=== PATIENT | female | born 1945 | race Caucasian/White ===

== ENCOUNTER 2019-10-28 01:23 | Day surgery (SDC) | payer MEDICARE, SELFPAY ==
[2019-10-27 08:35] VITALS: BMI 21.9
[2019-10-28] MEDS: LACTATED RINGERS 1,000 ML 150 ML IV CONT (09:42)
[2019-10-28 09:46] VITALS: BP 155/73; PULSE 57; RESP 18; TEMP 36.6; O2SAT 99; BMI 22.5
--- NOTE | 2019-10-28 10:48 | P.HP_ITS ---
History of Present Illness History of Present Illness Consent: Risks, benefits, and alternatives have been discussed and questions answered. Patient agrees to proceed with procedure. Chief complaint: Reflux/ Epigastric Pain Narrative: Michelle Aly is a 73 year old W female with chronic intermittent epigastric abdominal pain. Recent episodes of present for 4 months. She has no precipitating or relieving factors. Pain is epigastric in origin with radiation to the back. No nausea vomiting hematemesis no dysphagia no odynophagia. Patient states that she has had a recent CT scan of the abdomen which was normal. No weight loss associated with this. 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 GERD (gastroesophageal reflux disease) Hepatitis Hyperlipidemia Jaundice due to hepatitis Rectal polyp Rib fracture Seasonal allergies Sliding hiatal hernia Viral meningitis Surgical History Surgical History H/O colonoscopy History of bunionectomy of both great toes History of surgical removal of skin lesion removing fatty tumor on lower back History of tubal ligation Hx of appendectomy Hx of cataract removal with insertion of prosthetic lens Hx of cholecystectomy Hx of endoscopy Hx of tonsillectomy Social History Social History Smoking status: Never smoker Gender identity (if verbalized by the patient): Female Meds Home Medications and Allergies Home Medications Medication Instructions Recorded Confirmed Type aspirin [Aspir-81] 81 mg PO DAILY 10/09/19 10/27/19 History cholecalciferol (vitamin D3) 2,000 unit PO DAILY 10/09/19 10/27/19 History omeprazole 40 mg PO DAILY 10/09/19 10/27/19 History simvastatin 20 mg PO DAILY 10/09/19 10/27/19 History albuterol sulfate 1 inh INHALATION QID PRN 10/27/19 10/27/19 History Allergies Allergy/AdvReac Type Severity Reaction Status Date / Time erythromycin base Allergy Mild NAUSEA Verified 10/28/19 09:44 morphine Allergy Mild RAPID Verified 10/28/19 09:44 HEART RATE Vital Signs Vital Signs - 24 hr 10/28/19 09:46 Temperature 36.6 C Pulse Rate 57 L Respiratory Rate 18 Blood Pressure 155/73 H Pulse Oximetry 99 Exam Const: Orientation/consciousness: patient oriented x3 Resp: Auscultation: clear to auscultation bilaterally Cardio: Rate: regular rate Rhythm: regular rhythm Heart sounds: no murmurs GI: GI Palp: Yes Soft to palpation, No Tenderness to palpation present (GI), Yes No hepatosplenomegaly present and No Palpable mass present Auscultation: normal bowel sounds Neuro: General: patient oriented x3 and no focal motor deficits Extrem: General: no pedal edema Assessment and Plan Additional Plan EGD for evaluation of epigastric abdominal pain
[2019-10-28 11:12] VITALS: BP 109/56; PULSE 63; RESP 16; O2SAT 97
[2019-10-28 11:22] VITALS: BP 114/64; PULSE 63; RESP 16; O2SAT 97
[2019-10-28 11:32] VITALS: BP 120/69; PULSE 59; RESP 17; O2SAT 100
== END 2019-10-28 11:46 | disposition home or self-care (01) ==
PROVIDERS: PCP Physician Assistant; Visit Provider Internal Medicine Gastroenterology
PROC: 0DJ08ZZ Inspection of Upper Intestinal Tract, Via Natural or Artificial Opening Endoscopic (ICD-10-PCS; CPT 43235; principal; 2019-10-28 10:30)
DX: R10.13 Epigastric pain (principal); K44.9 Diaphragmatic hernia without obstruction or gangrene; J45.909 Unspecified asthma, uncomplicated; K21.9 Gastro-esophageal reflux disease without esophagitis; E78.5 Hyperlipidemia, unspecified; K75.9 Inflammatory liver disease, unspecified; H26.9 Unspecified cataract; Z79.82 Long term (current) use of aspirin
CPT/HCPCS: 43239; 88305; J2001; J2704; J7120

== ENCOUNTER → 2020-05-05 10:46 | Outpatient (CLI) | payer MEDICARE, SELFPAY ==
--- NOTE | ~2020-05-05 | MM_ITS ---
EXAMINATION: MM screening daniel BI w joe HISTORY: Screening TECHNIQUE: Craniocaudal and mediolateral oblique 3-D tomosynthesis images were obtained and synthetic 2-D images were generated. CAD analysis was submitted and interpreted. COMPARISON: Comparison to multiple prior studies sequentially, with oldest reviewed study dated 04/2014. BREAST PARENCHYMAL COMPOSITION: There are scattered areas of fibroglandular density. FINDINGS: There is no evidence of suspicious mass, calcification, or architectural distortion to sugg est malignancy in either breast. There has been no suspicious interval change. IMPRESSION: 1. No mammographic evidence of malignancy. 2. Recommend routine screening mammography in one year. BI-RADS Category 1: Negative Reviewed, dictated and finalized at location A.
== END ==
PROVIDERS: Visit Provider Physician Assistant
DX: Z12.31 Encounter for screening mammogram for malignant neoplasm of breast (principal)
CPT/HCPCS: 77063; 77067

== ENCOUNTER 2020-06-07 15:08 | Outpatient (CLI) | payer MEDICARE, SELFPAY ==
--- NOTE | 2020-06-07 | ECG_ITS ---
Measurements Intervals [place] Rate: 60 P: 67 ID: 140 QRS: 26 QRSD: 90 T: 54 QT: 425 QTc: 425 Interpretive Statements SINUS RHYTHM NORMAL ECG Electronically Signed On 06-07-2020 16:43:59 CDT by Miah Dunne D.O.
[2020-06-07 16:21] LABS: Hematocrit 43.1 % (37.0-47.0)
[2020-06-07 16:36] LABS: Albumin Level 4.5 g/dL (3.5-5.1); Estimated Glomerular Filt Rate > 60; Glucose 94 mg/dL (65-105)
== END 2020-06-07 15:09 | disposition home or self-care (01) ==
PROVIDERS: PCP Physician Assistant; Visit Provider Orthopaedic Surgery
DX: M16.11 Unilateral primary osteoarthritis, right hip (principal); K21.9 Gastro-esophageal reflux disease without esophagitis; E78.5 Hyperlipidemia, unspecified; Z01.818 Encounter for other preprocedural examination
CPT/HCPCS: 36415; 82040; 82565; 82947; 85014; 85018; 93005

== ENCOUNTER 2020-06-20 07:55 | Outpatient (CLI) | payer MEDICARE, SELFPAY ==
[2020-06-20 09:39] LABS: Basophils Absolute Auto 0.1 K/mm3 (0.0-0.1); Basophils Percent Auto 1.3 % (0.2-1.2); Eosinophils Absolute Auto 0.2 K/mm3 (0-0.3); Eosinophils Percent Auto 2.8 % (0-4.4); Hematocrit 45.8 % (37.0-47.0); Hemoglobin 14.9 g/dL (12.0-15.0); Immature Granulocyte Absolute 0.01 K/mm3 (0.00-0.031); Immature Granulocyte Percent A 0.2 % (0-0.5); Lymphocytes Absolute Auto 1.87 K/mm3 (0.9-3.2); Lymphocytes Percent Auto 35.1 % (18.3-44.2); Mean Corpuscular HGB Conc 32.5 g/dl (32-36); Mean Corpuscular Hemoglobin 29.5 pg (26-34); Mean Corpuscular Volume 90.7 fl (80-100); Mean Platelet Volume 10.8 fl (7.4-10.4); Monocytes Absolute Auto 0.5 K/mm3 (0.1-0.6); Monocytes Percent Auto 9.8 % (2.6-8.5); Neutrophils Absolute Auto 2.7 K/mm3 (1.3-6.7); Neutrophils Percent Auto 50.8 % (45.5-73.1); Platelet Count Result 225 k/mm3 (150-375); Red Blood Count 5.05 M/mm3 (4.2-5.4); Red Cell Distribution Width 12.9 % (11.5-14.5); White Blood Count 5.3 K/mm3 (4.5-10.0)
[2020-06-20 09:48] LABS: Prothrombin Time 12.4 Seconds (11.1-14.7)
[2020-06-20 09:49] LABS: Partial Thromboplastin Time 29.5 SECONDS (22.3-36.8); Urine Cotinine NEGATIVE
[2020-06-20 09:50] LABS: Anion Gap 5 mmol/L (8-16); Blood Urea Nitrogen 17 mg/dL (7-17); Calcium 9.5 mg/dL (8.4-10.2); Carbon Dioxide 30 mmol/L (22-30); Chloride 103 mmol/L (98-107); Estimated Glomerular Filt Rate > 60; Glucose 100 mg/dL (65-105); Potassium 3.9 mmol/L (3.4-5.0); Sodium 138 mmol/L (137-145)
[2020-06-20 09:53] LABS: Hemoglobin A1C 5.5 % (<5.7)
== END 2020-06-20 07:56 | disposition home or self-care (01) ==
LOC: ANHSURGERY 07:59
PROVIDERS: Anesthesiology; PCP Physician Assistant; Visit Provider Orthopaedic Surgery
DX: Z01.818 Encounter for other preprocedural examination (principal); M16.11 Unilateral primary osteoarthritis, right hip; K75.9 Inflammatory liver disease, unspecified
CPT/HCPCS: 36415; 80048; 80307; 83036; 85025; 85610; 85730; 87081

== ENCOUNTER 2020-07-08 01:44 | Outpatient (CLI) | payer MEDICARE, SELFPAY ==
[2020-07-08 18:59] LABS: SARS-CoV-2 RNA PCR Negative
== END 2020-07-08 01:45 | disposition home or self-care (01) ==
LOC: ANHCOVIDDT 01:45
PROVIDERS: PCP Physician Assistant; Visit Provider Orthopaedic Surgery
DX: Z01.812 Encounter for preprocedural laboratory examination (principal); Z20.828 Contact with and (suspected) exposure to other viral communicable diseases
CPT/HCPCS: 87635; C9803; U0003

== ENCOUNTER 2020-07-11 01:20 | Day surgery (SDC) | payer MEDICARE, SELFPAY ==
[2020-06-20 08:19] VITALS: BMI 23.1
[2020-06-20 08:20] VITALS: BP 186/85; PULSE 58; RESP 16; TEMP 36.7; O2SAT 98
[2020-07-11] VITALS (11 sets, daily range): BP systolic 120–177; BP diastolic 59–76; PULSE 56–61; RESP 8–20; TEMP 36–36.6; O2SAT 96–100; BMI 22.9
--- NOTE | ~2020-07-11 | XR_ITS ---
EXAMINATION: XR hip RT min 2V DATE: 07/11/2020 15:32 INDICATION: EXAMINATION: XR hip RT min 2V DATE: 07/11/2020 15:32 INDICATION: Postoperative evaluation following right total hip arthroplasty TECHNIQUE: Anteroposterior and lateral views of the right hip were obtained. COMPARISON: Intraoperative radiograph dated FINDINGS: Interval placement of a right total hip arthroplasty which is in near anatomic alignment. There is re sidual lucency between the acetabulum and the superior to medial aspect of the acetabular component. No fractures identified. Partially visualized femoral stem of a contralateral left total hip arthrop lasty. IMPRESSION: 1. Right total hip arthroplasty in near-anatomic alignment. Reviewed, dictated and finalized at location B.
--- NOTE | 2020-07-11 07:20 | WPDHPUPDATE1 ---
History and Physical Update Update Date/Time: 07/11/20 07:20 History and Physical has been reviewed, including an updated exam of the patient. There are NO changes in the patient's condition. Risks, benefits, and alternatives have been discussed and questions answered. Patient agrees to proceed with procedure.
[2020-07-11] MEDS: ACETAMINOPHEN 500 MG TABLET 1000 MG PO (10:59)
--- NOTE | 2020-07-11 11:06 | WPDANESEPPF ---
Anes - Initial Pre Proc Eval Procedure: Operation Date: 07/11/20 12:30 Proposed Procedures p Right Total Hip Arthroplasty - Reinier Morrissey MD Date/Time: 07/11/20 11:06 Surgeon: Reinier Morrissey MD Pre Op Diagnosis: Primary OA Right hip Patient Data Age: 74 Gender: F Height: 5 ft 3 in Weight: 58.85 kg Last Vital Signs Temp 36.6 C 07/11/20 10:45 Pulse 56 L 07/11/20 10:45 Resp 14 07/11/20 10:45 BP 177/74 H 07/11/20 10:45 Pulse Ox 100 07/11/20 10:45 Allergies Allergy/AdvReac Type Severity Reaction Status Date / Time erythromycin base Allergy Mild NAUSEA Verified 07/11/20 10:51 morphine AdvReac Mild RAPID Verified 07/11/20 10:51 HEART RATE Home Medications Medication Instructions Recorded Confirmed Type aspirin [Aspir-81] 81 mg PO HS 10/09/19 07/11/20 History omeprazole 40 mg PO QAM 10/09/19 07/11/20 History simvastatin 20 mg PO HS 10/09/19 07/11/20 History albuterol sulfate 1 inh INHALATION QAM PRN 10/27/19 07/05/20 History acetaminophen [Tylenol Extra 1,000 mg PO Q6H PRN 06/20/20 07/11/20 History Strength] cholecalciferol (vitamin D3) 25 mcg PO DAILY 06/20/20 07/11/20 History [Vitamin D3] fluticasone propion-salmeterol 1 inh INHALATION QAM 06/20/20 07/11/20 History [Advair Diskus] Patient hx anesthesia problems: none Family hx anesthesia problems: none PMFSH Past Medical History Medical History Asthma Bronchitis Cataracts, bilateral Falls Fatty tumor on lower back GERD (gastroesophageal reflux disease) Hepatitis Hyperlipidemia Jaundice due to hepatitis Rectal polyp Rib fracture Seasonal allergies Sliding hiatal hernia Viral meningitis Surgical History Surgical History H/O colonoscopy History of bunionectomy of both great toes History of surgical removal of skin lesion removing fatty tumor on lower back History of total left hip arthroplasty History of tubal ligation Hx of appendectomy Hx of cataract removal with insertion of prosthetic lens Hx of cholecystectomy Hx of endoscopy Hx of tonsillectomy Social History Social History Smoking status: Never smoker Alcohol intake: never Substance use: never Living arrangements: with family Gender identity (if verbalized by the patient): Female Spiritual care concerns: No Anes - Eval Final PreProcedure Day of Procedure 07/11/20 11:06 Patient weight: normal Heart: regular rate and rhythm Lungs: clear to auscultation Airway: Mallampati scale class II Neurological: alert and oriented Last oral intake: >/= 8 hours ASA classification: II Emergent: no Anesthetic plan: proceed Anesthesia type and monitoring: general ETT and standard monitoring Informed Consent: The patient's anesthetic plan and its attendant risks and benefits were discussed with the patient/family/POA. Questions were solicited and answers provided to the satisfaction of the patient/family/POA.
[2020-07-11] MEDS: LACTATED RINGERS 1,000 ML 30 ML IV CONT ×2 (11:12→15:15)
[2020-07-11] MEDS: KETOROLAC 15 MG/ML VIAL (*BKC) IV PUSH (11:18)
[2020-07-11] MEDS: TRANEXAMIC ACID 1,000MG/ISO100 1,000 MG/100 ML BAG 200 MG IVPB (11:43)
[2020-07-11] MEDS: ceFAZolin 2 GM/D5W 50 ML 2 GM/50 ML BAG IVPB (13:24)
[2020-07-11] MEDS: fentaNYL CITRATE INJ (*CRX) 100 MCG/2 ML VIAL 25 MCG IV PUSH ×2 (15:52→16:00)
--- NOTE | 2020-07-11 15:52 | P.OP_ITS ---
Procedure Note - Detailed Date of procedure: 07/11/20 Pre-op diagnosis: Primary OA Right hip Post-op diagnosis: same Procedure performed: Total hip arthroplasty. Implants: The Accolade II hip stem, 127 degree size 3 , was utilized with excell ent press-fit. The 48 mm ADM acetabular component was impacted with excellent press-fit stability. The +4 , 28 mm Biolox ceramic femoral head was utilized. Anesthesia: GLMA Surgeon: Reinier Morrissey MD Estimated blood loss (mL): 200 Drains: No Pathology: none sent Complications: None Condition: stable Disposition: PACU Findings: OPERATIVE DETAILS: The patient was given preoperative antibiotics. A general anesthetic was administered. The patient was carefully placed in the lateral decubitus position on the PEG board. The shoulders and hips were carefully positioned for component and leg length positioning reference. The hip was prepped and draped in the usual sterile fashion. A longitudinal incision was created over the posterior aspect of the greater trochanter. Careful dissection was brought down through the deep fascia with electrocautery. A minimally invasive optimized posterior approach to the hip was performed. The short external rotators and capsule were taken down in an L-shaped capsulotomy. The tissue was tagged for later repair using number 2 high strength suture. The femoral neck was measured and taken in situ. The femoral head was removed. The acetabulum was carefully exposed. The inferior capsule was released. The labrum was resected. The acetabulum was sequentially reamed to one over the intended cup size. The cup was impacted into position with excellent press-fit. Typical anatomic landmarks, including the bony contact points as well as the inferior transverse acetabular ligament were used to confirm cup positioning with preoperative templating. Attention was turned to the femur, which was carefully exposed. The hip was reamed and then broached sequentially. Excellent press-fit was obtained with the broach. The hip was trialed. Measurements were utilized, including the lesser trochanter as well as the center of the femoral head and the tip of the trochanter, and excellent assessment of the offset and leg lengths were confirmed. The real component was impacted into position. Trialing confirmed appropriate leg length and offset with soft tissue balancing as well apparent feel of the leg, both at the knee and the heel. Soft tissues were assessed using the the iliotibial band. Reduction of the posterior capsule and external rotators were also used as a secondary assessment. The hip was copiously irrigated with pulsatile lavage antibiotic solution periodically throughout the procedure. The real components were then assembled and reduced. The hip was stable throughout typical maneuvers, including extension, external rotation to 70 degrees, the position of sleep as well as flexion to 90 degrees with internal rotation past 45 degrees. The shake test confirmed stability without impingement. Osteophytes were removed as necessary. The short external rotators and capsule were repaired back to the posterior trochanter through drill holes. The deep fascia was repaired with running number 2 Quill suture, followed by 0 Stratafix suture and 2-0 Stratafix suture in the dermis. Steri- Strips were placed on the skin, followed by a sterile silver occlusive dressing. There were no complications. Meticulous hemostasis was maintained with the AquaMantys device. The patient was brought to the recovery room in stable condition. There were no complications.
--- NOTE | 2020-07-11 16:28 | ADMGEN ---
This patient, Michelle Aly, was admitted to 2 Medical Room 258-01. Patient/family oriented to hospital policies and general routines including ID bracelet, bed and alarms, visiting hours, pain management, procedures, bathroom and other care routines, personal items, smoking policy, room service/diet, and visiting hours. Valuables list has been completed. Information on how to activate the Rapid Response Team has been discussed. Patient/Family are encouraged to report perceived risks to care and to ask questions if they do not understand what they are told or what they should do.
[2020-07-11 16:36] LABS: Hematocrit 37.6 % (37.0-47.0); Hemoglobin 12.5 g/dL (12.0-15.0)
[2020-07-11] MEDS: ONDANSETRON INJ 4 MG/2 ML VIAL IV PUSH (16:37)
[2020-07-11] MEDS: MELOXICAM 7.5 MG TABLET PO (17:46)
[2020-07-11] MEDS: ASPIRIN 81 MG ENTERIC TABLET PO (17:46)
[2020-07-11] MEDS: DOCUSATE SODIUM 100 MG CAPSULE PO (17:46)
[2020-07-11] MEDS: SIMVASTATIN 20 MG TABLET PO (21:06)
[2020-07-11] MEDS: oxyCODONE HCL (*CRX) 5 MG TAB IR PO (21:06)
[2020-07-12 01:56] VITALS: BP 134/63; PULSE 65; RESP 20; TEMP 36.2; O2SAT 100
[2020-07-12] MEDS: ONDANSETRON INJ 4 MG/2 ML VIAL IV PUSH ×2 (02:06→08:12)
[2020-07-12 05:41] VITALS: BP 127/58; PULSE 59; RESP 20; TEMP 36.4; O2SAT 100
[2020-07-12 06:02] LABS: Basophils Percent Auto 0.1 % (0.2-1.2); Hematocrit 36.6 % (37.0-47.0); Hemoglobin 12.4 g/dL (12.0-15.0); Immature Granulocyte Absolute 0.07 K/mm3 (0.00-0.031); Immature Granulocyte Percent A 0.5 % (0-0.5); Lymphocytes Percent Auto 10.5 % (18.3-44.2); Mean Corpuscular HGB Conc 33.9 g/dl (32-36); Mean Corpuscular Hemoglobin 29.6 pg (26-34); Mean Corpuscular Volume 87.4 fl (80-100); Mean Platelet Volume 10.7 fl (7.4-10.4); Monocytes Absolute Auto 1.4 K/mm3 (0.1-0.6); Monocytes Percent Auto 9.6 % (2.6-8.5); Neutrophils Absolute Auto 11.4 K/mm3 (1.3-6.7); Neutrophils Percent Auto 79.3 % (45.5-73.1); Platelet Count Result 204 k/mm3 (150-375); Red Blood Count 4.19 M/mm3 (4.2-5.4); Red Cell Distribution Width 12.4 % (11.5-14.5); White Blood Count 14.3 K/mm3 (4.5-10.0)
[2020-07-12 06:04] LABS: Anion Gap 7 mmol/L (8-16); Blood Urea Nitrogen 13 mg/dL (7-17); Calcium 8.7 mg/dL (8.4-10.2); Carbon Dioxide 28 mmol/L (22-30); Chloride 100 mmol/L (98-107); Estimated CRCL calculation 52 ml/min; Estimated Glomerular Filt Rate > 60; Glucose 114 mg/dL (65-105); Potassium 4.3 mmol/L (3.4-5.0); Sodium 135 mmol/L (137-145)
--- NOTE | 2020-07-12 07:57 | P.PNAN_ITS ---
Anes - Prog Note Post-Op Date/Time: 07/12/20 07:57 Cardiovascular status: normal Respiratory status: normal Airway patency: baseline Mental status: baseline Post-Op hydration status: normal Vital Signs: Last Vital Signs Temp 36.4 C 07/12/20 05:41 Pulse 59 L 07/12/20 05:41 Resp 20 07/12/20 05:41 BP 127/58 L 07/12/20 05:41 Pulse Ox 100 07/12/20 05:41 Pain Score (VAS): 0 I/O: Intake & Output 07/11/20 07/11/20 07/12/20 15:59 23:59 07:59 Intake Total 50 550 640 Output Total 300 600 Balance 50 250 40 Laboratory Tests 07/12/20 05:23 07/12/20 05:23 07/11/20 07/11/20 07/12/20 11:09 16:29 05:23 WBC 14.3 H RBC 4.19 L Hgb 12.5 12.4 Hct 37.6 36.6 L MCV 87.4 MCH 29.6 MCHC 33.9 RDW 12.4 Plt Count 204 MPV 10.7 H Immature Gran % (Auto) 0.5 Neut % (Auto) 79.3 H Lymph % (Auto) 10.5 L [place] % (Auto) 9.6 H Eos % (Auto) 0.0 Baso % (Auto) 0.1 L Lymph # (Auto) 1.50 [place] # (Auto) 1.4 H Eos # (Auto) 0.0 Baso # (Auto) 0.0 Abs Immat Gran (auto) 0.07 H Absolute Neuts (auto) 11.4 H Absolute Nucleated RBC 0.0 Nucleated RBC % 0.0 Sodium Potassium Chloride Carbon Dioxide Anion Gap BUN Creatinine Estim Creat Clear Calc Estimated GFR Glucose Calcium Blood Type O Positive Antibody Screen Negative 07/12/20 05:23 WBC RBC Hgb Hct MCV MCH MCHC RDW Plt Count MPV Immature Gran % (Auto) Neut % (Auto) Lymph % (Auto) [place] % (Auto) Eos % (Auto) Baso % (Auto) Lymph # (Auto) [place] # (Auto) Eos # (Auto) Baso # (Auto) Abs Immat Gran (auto) Absolute Neuts (auto) Absolute Nucleated RBC Nucleated RBC % Sodium 135 L Potassium 4.3 Chloride 100 Carbon Dioxide 28 Anion Gap 7 L BUN 13 Creatinine 0.70 Estim Creat Clear Calc 52 Estimated GFR > 60 Glucose 114 H Calcium 8.7 Blood Type Antibody Screen Post-procedural complaints: nausea Patient Feedback: Patient satisfied with anesthetic care.
--- NOTE | 2020-07-12 07:58 | PC.NURSE ---
Patient up in chair. Complains of continued nausea. Patient unable to eat or drink anything. States Zofran has not provided any relief. Patient rates right hip pain 10/08. States she is comfortable other than the c/o nausea. Patient ordered dry toast but has been unable to eat any of it. Just smelling it has increased her nausea. OT here to work with patient but patient fears she will start vomiting if she moves/walks at this time. Call to Dr. Morrissey and message left. Awaiting call back.
[2020-07-12] MEDS: FLUTICASONE/SALMETEROL 115-21 MCG INHALER 1 PUFF 2 PUFF INHALATION (08:19)
[2020-07-12 10:00] VITALS: BP 108/52; PULSE 59; RESP 16; TEMP 36.6; O2SAT 98
[2020-07-12] MEDS: CHOLECALCIFEROL 1,000 UNITS TABLET 1000 UNITS PO (10:04)
[2020-07-12] MEDS: ASPIRIN 81 MG ENTERIC TABLET PO (10:04)
[2020-07-12] MEDS: MELOXICAM 7.5 MG TABLET PO (10:04)
[2020-07-12] MEDS: DOCUSATE SODIUM 100 MG CAPSULE PO (10:04)
[2020-07-12] MEDS: PANTOPRAZOLE 40 MG TABLET PO (10:04)
[2020-07-12] MEDS: PROMETHAZINE HCL 25 MG/ML AMPUL 12.5 MG IV PUSH (11:05)
[2020-07-12 14:00] VITALS: BP 100/51; PULSE 70; RESP 16; TEMP 37.1; O2SAT 100
--- NOTE | 2020-07-15 10:35 | PM.DS ---
DS: Admitting Diagnosis Admitting Diagnosis Admitting Diagnosis: Primary OA Right hip DS: Discharge Diagnosis Discharge Diagnosis (1) Primary osteoarthritis of right hip: Code(s): M16.11 - Unilateral primary osteoarthritis, right hip Status: Acute DS: Summary Hospital Course Reason for hospitalization: Total hip arthroplasty. Hospital Course: Tolerated surgery well. Progressed appropriately with therapy. Complained of significant nausea in the 1st 24 hours. Status at Discharge Functional status at discharge: uses cane/walker Overall status at discharge: patient is progressing back to baseline Time Spent with Patient Time attestation: Total time spent providing and/or coordinating discharge services: Exam Const: General: no acute distress Resp: Effort & Inspection: normal respiratory effort Skin: Other: Wound healing well. Mepilex dressing intact. No hematoma or drainage. Neuro: Motor exam (neuro): 5/5 motor strength present throughout Sensory Exam: normal sensation Psych: Mental Status: mental status grossly normal Speech and movement: Normal speech and movement present Discharge Plan Discharge Patient Disposition: Home, Self-Care Discharge Instructions: See instruction sheet. Patient Instructions: Precautions after Total Joint Replacement Surgery (DC), Total Hip Replacement (DC), Pain Management After Surgery (GEN) Follow-up/Referrals: Reinier Morrissey MD [Physician] - Discharge Medications: New aspirin 81 mg Tablet,Delayed Release (Dr/Ec) 81 mg PO BID 14 Days Qty: 28 RF: 0 meloxicam [Mobic] 7.5 mg Tablet 7.5 mg PO BID 30 Days Qty: 60 RF: 0 oxycodone-acetaminophen 5-325 mg tablet 1 - 2 tablet PO Q4-6H MDD 6 tablets PRN (Reason: pain) Qty: 30 RF: 0 Continued omeprazole 40 mg capsule,delayed release(DR/EC) 40 mg PO QAM RF: 0 simvastatin 20 mg tablet 20 mg PO HS RF: 0 albuterol sulfate 90 mcg/actuation Hfa Aerosol Inhaler 1 inh INHALATION QAM PRN (Reason: difficulty breathing) RF: 0 cholecalciferol (vitamin D3) [Vitamin D3] 25 mcg (1,000 unit) Capsule 25 mcg PO DAILY RF: 0 Advair HFA 115-21 mcg/actuation Hfa Aerosol Inhaler 2 puff INHALATION DAILY RF: 0 Discontinued aspirin [Aspir-81] 81 mg Tablet,Delayed Release (Dr/Ec) 81 mg PO HS RF: 0 acetaminophen [Tylenol Extra Strength] 500 mg Tablet 1,000 mg PO Q6H PRN (Reason: Pain) RF: 0
== END 2020-07-12 16:50 | disposition home or self-care (01) ==
LOC: ANHSURGERY 10:21 → ANH2MED 16:19
PROVIDERS: PCP Physician Assistant; Visit Provider Orthopaedic Surgery
PROC: (CPT 27130; principal; 2020-07-11 12:30)
DX: M16.11 Unilateral primary osteoarthritis, right hip (principal); K21.9 Gastro-esophageal reflux disease without esophagitis; K75.9 Inflammatory liver disease, unspecified; E78.5 Hyperlipidemia, unspecified
CPT/HCPCS: 27130; 36415; 73502; 80048; 85014; 85018; 85025; 86850; 86900; 86901; 94640; 97110; 97116; 97161; 97165; 97530; A9270; C1776; J0131; J0171; J0690; J1100; J1885; J2270; J2405; J2550; J2704; J2795; J3010; J7120

== ENCOUNTER → 2021-07-17 13:36 | Outpatient (CLI) | payer MEDICARE, SELFPAY ==
--- NOTE | ~2021-07-17 | MM_ITS ---
EXAMINATION: MM screening daniel BI w joe HISTORY: Screening mammogram TECHNIQUE: Craniocaudal and mediolateral oblique 3-D tomosynthesis images were obtained and synthetic 2-D images were generated. CAD analysis was submitted and interpreted. COMPARISON: 05/05/2020, 02/16/2019, 01/2018 bilateral digital screening mammogram examinations BREAST PARENCHYMAL COMPOSITION: There are scattered areas of fibroglandular density. FINDINGS: Scattered bilateral benign calcifications. There is no evidence of suspicious mass, calcifi cation, or architectural distortion to suggest malignancy in either breast. There has been no suspici ous interval change. IMPRESSION: 1. No mammographic evidence of malignancy. 2. Recommend routine screening mammography in one year. BI-RADS Category 2: Benign finding(s). Reviewed, dictated and finalized at location A.
== END ==
PROVIDERS: PCP Physician Assistant; Visit Provider Physician Assistant
DX: Z12.31 Encounter for screening mammogram for malignant neoplasm of breast (principal)
CPT/HCPCS: 77063; 77067

== ENCOUNTER → 2021-09-06 11:06 | Outpatient (CLI) | payer MEDICARE, SELFPAY ==
--- NOTE | ~2021-09-06 | DEXA_ITS ---
Bone Density Report Name: HYACINTH MCCOY Age: 75 Sex: Female Ethnicity: White Date of : 1945 Indication: postmenopausal; screening for osteoporosis; asthma or emphysema; Referring Provider: Nii, Linette Study: Bone densitometry was performed. Exam Date: September 06, 2021 Accession number: [id number] Bone Density: Region BMD T-score Z-score Classification AP Spine (L1-L4) 1.037 -0.1 2.2 Normal World Health Organization criteria for BMD impression classify patients as: Normal (T-score at or above -1.0), Osteopenia (T-score between -1.0 and -2.5), or Osteoporosis (T-score at or below -2.5). Previous Exams: Region Exam Age BMD T-score BMD Change BMD Change Date g/cm2 vs Baseline vs Previous AP Spine(L1-L4) 09/06/2021 75 1.037 -0.1 -0.054* 0.064* 11/02/2014 68 0.973 -0.7 -0.118* -0.118* 01/10/2010 64 1.091 0.4 *Denotes significance at 95% confidence level, LSC for AP Spine = 0.022 g/cm2 Clinical Information Provided by Patient: Has used the following medications: Vitamin D Has the following medical conditions: Asthma or Emphysema Patient maximum height was 63 Menopause Age: 55 Drinks caffeinated beverages Onset of menses at age 12 Number of children 3 Impression: The patient has normal bone mass. No significant bone loss was observed. Discussion: LOW RISK OF FRACTURE; BONE DENSITY IS WELL ABOVE THE MINIMUM DESIRABLE LEVEL AND ABOVE AVERAGE FOR AGE AND SEX AT ALL SKELETAL SITES TESTED. This person's bone density is above expected limits for age and sex. This is rarely clinically significant, but should be pursued if there are significant musculoskeletal complaints. The patient should follow a healthful lifestyle (good nutrition with adequate calcium and vitamin D, and appropriate weight-bearing exercise). Follow-Up: Consider repeating this study in 5 years or sooner if there is some new clinical indication. Reported by: KAPIL on 09/06/2021 11:14:00 AM. Reviewed, dictated and finalized at location ADelilah SAUCEDA
== END ==
PROVIDERS: PCP Physician Assistant; Visit Provider Physician Assistant
DX: Z78.0 Asymptomatic menopausal state (principal)
CPT/HCPCS: 77080

== ENCOUNTER 2021-10-03 07:52 | Outpatient (CLI) | payer MEDICARE, SELFPAY ==
[2021-10-03 08:18] LABS: Basophils Absolute Auto 0.1 K/mm3 (0.0-0.1); Basophils Percent Auto 0.9 % (0.2-1.2); Eosinophils Absolute Auto 0.2 K/mm3 (0-0.3); Eosinophils Percent Auto 3.4 % (0-4.4); Hematocrit 39.7 % (37.0-47.0); Hemoglobin 12.6 g/dL (12.0-15.0); Immature Granulocyte Absolute 0.02 K/mm3 (0.00-0.031); Immature Granulocyte Percent A 0.3 % (0-0.5); Lymphocytes Absolute Auto 2.17 K/mm3 (0.9-3.2); Lymphocytes Percent Auto 31.7 % (18.3-44.2); Mean Corpuscular HGB Conc 31.7 g/dl (32-36); Mean Corpuscular Volume 85.2 fl (80-100); Mean Platelet Volume 10.2 fl (7.4-10.4); Monocytes Absolute Auto 0.7 K/mm3 (0.1-0.6); Monocytes Percent Auto 9.5 % (2.6-8.5); Neutrophils Absolute Auto 3.7 K/mm3 (1.3-6.7); Neutrophils Percent Auto 54.2 % (45.5-73.1); Platelet Count Result 250 k/mm3 (150-375); Red Blood Count 4.66 M/mm3 (4.2-5.4); Red Cell Distribution Width 13.6 % (11.5-14.5); White Blood Count 6.9 K/mm3 (4.5-10.0)
[2021-10-03 08:42] LABS: Alanine Aminotransferase 18 U/L (4-35); Albumin Level 4.5 g/dL (3.5-5.1); Alkaline Phosphatase 80 U/L (38-126); Anion Gap 9 mmol/L (8-16); Aspartate Amino Transferase 31 U/L (14-36); Bilirubin,Total 0.5 mg/dL (0.2-1.3); Blood Urea Nitrogen 16 mg/dL (7-17); Calcium 9.3 mg/dL (8.4-10.2); Carbon Dioxide 28 mmol/L (22-30); Chloride 103 mmol/L (98-107); Cholesterol 203 mg/dL (0-200); Estimated Glomerular Filt Rate > 60; Glucose 96 mg/dL (65-110); HDL Direct 62 mg/dL; Potassium 4.2 mmol/L (3.4-5.0); Sodium 140 mmol/L (137-145); Triglycerides 146 mg/dL (<150)
[2021-10-03 08:53] LABS: LDL Cholesterol Direct 89 mg/dL
[2021-10-03 09:03] LABS: Add Urine Microscopic? YES; Appearance Urine Clear (Clear); Bacteria Urine Trace /hpf; Bilirubin Urine Negative (Negative); Blood Urine Negative (Negative); Color Urine Yellow (Yellow); Glucose Urine UA Negative (Negative); Ketones Urine Negative (Negative); Leukocyte Esterase Ur 2+ LEU/UL (NEGATIVE); Mucus Urine Rare /lpf; Nitrate Urine Negative (Negative); Protein Urine Negative (Negative); RBC Urine 0-2 /hpf (0-2); Specific Grav Ur 1.019 (1.001-1.035); Squamous Epithelial Cell Urine Few /hpf (Few); Urobilinogen Urine Negative mg/dL (<2.0)
[2021-10-03 10:31] LABS: Free T4 Free Thyroxine 1.03 ng/mL (0.78-2.19)
== END 2021-10-03 07:53 | disposition home or self-care (01) ==
PROVIDERS: PCP Physician Assistant; Visit Provider Physician Assistant
DX: E78.5 Hyperlipidemia, unspecified (principal); Z51.81 Encounter for therapeutic drug level monitoring; Z79.899 Other long term (current) drug therapy
CPT/HCPCS: 36415; 80048; 80061; 80076; 81001; 84439; 84443; 85025

== ENCOUNTER 2021-12-11 07:10 | Emergency (ER) | payer MEDICARE, SELFPAY ==
[2021-12-11] VITALS (14 sets, daily range): BP systolic 113–143; BP diastolic 70–86; PULSE 64–74; RESP 13–16; TEMP 36.5; O2SAT 95–99
--- NOTE | ~2021-12-11 | XR_ITS ---
EXAMINATION: XR chest 1V portable DATE: 12/11/2021 07:51 INDICATION: Flu with cough and shortness of breath TECHNIQUE: frontal view of the chest was obtained. COMPARISON: Chest radiograph dated 12/02/2013 FINDINGS: Persistent hyperexpansion of the lungs. Mild opacities at the bilateral lung bases, left greater than right. No pleural effusion or pneumothorax. The cardiomediastinal silhouette is normal. Visualized b ones and soft tissues are unremarkable. IMPRESSION: 1. Mild bibasilar opacities, left greater than right which could represent atelectasis or pneumonia. Reviewed, dictated and finalized at location A. IMPRESSION: 1. Mild bibasilar opacities, left greater than right which could represent atel ectasis or pneumonia.
--- NOTE | 2021-12-11 07:35 | PC.NURSE ---
Dr. José at [facility] to wang .
--- NOTE | 2021-12-11 07:54 | ED.GENADULT ---
HPI - General Adult General Chief complaint: Upper Respiratory Infection Stated complaint: Cold symptoms Time Seen by Provider: 12/11/21 07:32 Source: patient and family Mode of arrival: ambulatory History of Present Illness HPI narrative: Patient 75 years old white female presents to the ED with nausea, vomiting and diarrhea started 3 days ago. Patient grandson tested positive for the flu 5 days prior to beginning of the patient's symptoms. Patient is fully vaccinated for COVID-19. Patient denies exposure to anybody known to have Covid infection. Related Data Home Medications Medication Instructions Recorded Confirmed omeprazole 40 mg PO QAM 10/09/19 07/09/21 simvastatin 20 mg PO HS 10/09/19 07/09/21 albuterol sulfate 1 inh INHALATION QAM PRN 10/27/19 07/09/21 cholecalciferol (vitamin D3) 25 mcg PO DAILY 06/20/20 07/09/21 [Vitamin D3] Advair HFA 2 puff INHALATION DAILY 07/12/20 07/09/21 aspirin 81 mg PO DAILY 12/11/21 Allergies Allergy/AdvReac Type Severity Reaction Status Date / Time erythromycin base Allergy Mild NAUSEA Verified 07/09/21 08:18 azithromycin Allergy Unknown unknown Verified 07/09/21 08:18 morphine AdvReac Mild RAPID Verified 07/09/21 08:18 HEART RATE Review of Systems Review of Systems: CONSTITUTIONAL: Denies fever, chills, or sweats. EYES: Denies visual changes, redness, or discharge. ENT: Denies rhinorrhea, congestion, sore throat, or otalgia. CARDIOVASCULAR: Denies chest pain, palpitations, or edema. RESPIRATORY: Denies cough or dyspnea. GASTROINTESTINAL: Denies abdominal pain, nausea, vomiting, or diarrhea. GENITOURINARY: Denies dysuria or hematuria. SKIN: Denies rash or itching. MUSCULOSKELETAL: Denies back pain, joint pain, or myalgia. NEUROLOGIC: Denies headache, numbness, or weakness. PSYCHIATRIC: Denies anxiety or depression. [facility] Past Medical History Medical History Asthma Bronchitis Cataracts, bilateral Falls Fatty tumor on lower back GERD (gastroesophageal reflux disease) Hepatitis Hyperlipidemia Jaundice due to hepatitis Rectal polyp Rib fracture Seasonal allergies Sliding hiatal hernia Viral meningitis Surgical History Surgical History H/O colonoscopy History of bunionectomy of both great toes History of surgical removal of skin lesion removing fatty tumor on lower back History of total left hip arthroplasty (~07/21/18) History of total right hip arthroplasty (~07/11/20) History of tubal ligation Hx of appendectomy Hx of cataract removal with insertion of prosthetic lens Hx of cholecystectomy Hx of endoscopy Hx of tonsillectomy Family History Family History Mother Family history of lung cancer Sibling Family history of malignant neoplasm of urinary bladder Mother Family history of lung cancer Sibling Family history of malignant neoplasm of urinary bladder Father Family history of heart disease in male family member before age 55 Social History Social History Smoking status: Never smoker Alcohol intake: never Substance use: never Gender identity (if verbalized by the patient): Female Spiritual care concerns: No Exam Narrative: General appearance: Well-developed, well-nourished Skin: Normal color Head: Normocephalic, nontraumatic Eyes: Clear conjunctiva ENT: Oropharynx normal, ears normal, nose normal Neck: Supple, nontender Chest and respiratory: Airway patent, no respiratory distress, no accessory muscle use Heart: Regular rate/rhythm Abdomen: Soft, nontender, no organomegaly, quiet bowel sounds Vascular: Normal peripheral pulses, normal capillary refill. Musculoskeletal: Normal range of motion, nontender back Neurologic: Alert and oriented ?3, CERAMIC TILE SETTER is normal as tested, no gross motor deficit
[2021-12-11] MEDS: SODIUM CHLORIDE 0.9% IV 1,000 ML 999 ML IV CONT (08:12)
[2021-12-11] MEDS: ONDANSETRON INJ 4 MG/2 ML VIAL IV PUSH (08:13)
[2021-12-11 08:29] LABS: Basophils Absolute Auto 0.1 K/mm3 (0.0-0.1); Eosinophils Absolute Auto 0.1 K/mm3 (0-0.3); Eosinophils Percent Auto 1.6 % (0-4.4); Hematocrit 39.5 % (37.0-47.0); Hemoglobin 12.5 g/dL (12.0-15.0); Immature Granulocyte Absolute 0.01 K/mm3 (0.00-0.031); Immature Granulocyte Percent A 0.2 % (0-0.5); Lymphocytes Absolute Auto 1.16 K/mm3 (0.9-3.2); Mean Corpuscular HGB Conc 31.6 g/dl (32-36); Mean Corpuscular Hemoglobin 26.5 pg (26-34); Mean Corpuscular Volume 83.7 fl (80-100); Mean Platelet Volume 10.8 fl (7.4-10.4); Monocytes Absolute Auto 0.9 K/mm3 (0.1-0.6); Monocytes Percent Auto 15.1 % (2.6-8.5); Neutrophils Absolute Auto 3.8 K/mm3 (1.3-6.7); Neutrophils Percent Auto 63.1 % (45.5-73.1); Platelet Count Result 222 k/mm3 (150-375); Red Blood Count 4.72 M/mm3 (4.2-5.4); Red Cell Distribution Width 13.6 % (11.5-14.5); White Blood Count 6.1 K/mm3 (4.5-10.0)
[2021-12-11 08:39] LABS: Alanine Aminotransferase 20 U/L (4-35); Albumin Level 4.5 g/dL (3.5-5.1); Alkaline Phosphatase 94 U/L (38-126); Anion Gap 10 mmol/L (8-16); Aspartate Amino Transferase 35 U/L (14-36); Bilirubin,Total 0.5 mg/dL (0.2-1.3); Blood Urea Nitrogen 15 mg/dL (7-17); Calcium 8.9 mg/dL (8.4-10.2); Carbon Dioxide 27 mmol/L (22-30); Chloride 102 mmol/L (98-107); Estimated CRCL calculation 45 ml/min; Estimated Glomerular Filt Rate > 60; Glucose 118 mg/dL (65-110); Potassium 3.6 mmol/L (3.4-5.0); Sodium 139 mmol/L (137-145)
[2021-12-11 09:04] LABS: Influenza A QL RT-PCR Positive (Negative); Influenza B QL RT-PCR Negative (Negative); SARS-CoV-2 RNA PCR Negative
--- NOTE | 2021-12-11 09:51 | PC.NURSE ---
Tolerating crackers and clear liquids well.
== END 2021-12-11 10:06 | disposition home or self-care (01) ==
PROVIDERS: Emergency Provider Emergency Medicine; PCP Physician Assistant
DX: J10.1 Influenza due to other identified influenza virus with other respiratory manifestations (principal); Z20.822 Contact with and (suspected) exposure to COVID-19; J45.909 Unspecified asthma, uncomplicated; K21.9 Gastro-esophageal reflux disease without esophagitis; E78.5 Hyperlipidemia, unspecified; Z87.19 Personal history of other diseases of the digestive system; Z96.643 Presence of artificial hip joint, bilateral; Z98.49 Cataract extraction status, unspecified eye; Z96.1 Presence of intraocular lens; Z79.82 Long term (current) use of aspirin
CPT/HCPCS: 36415; 71045; 80053; 85025; 87502; 96361; 96374; 99284; C9803; J2405; J7030; U0003; U0005

== ENCOUNTER 2022-06-14 21:33 | Emergency (ER) | payer MEDICARE, SELFPAY ==
[2022-06-14] VITALS (16 sets, daily range): BP systolic 161–174; BP diastolic 78–93; PULSE 67–100; RESP 13–23; TEMP 37; O2SAT 95–100
[2022-06-14] MEDS: SODIUM CHLORIDE 0.9% IV 1,000 ML 999 ML IV CONT ×2 (21:50→23:18)
[2022-06-14] MEDS: ONDANSETRON INJ 4 MG/2 ML VIAL IV PUSH (21:50)
--- NOTE | 2022-06-14 21:54 | PC.NURSE ---
Patient states she is unable to provide a urine specimen at this time. States she will try to provide one shortly.
[2022-06-14 21:56] LABS: Basophils Absolute Auto 0.1 K/mm3 (0.0-0.1); Basophils Percent Auto 0.8 % (0.2-1.2); Eosinophils Percent Auto 0.2 % (0-4.4); Hemoglobin 13.5 g/dL (12.0-15.0); Immature Granulocyte Absolute 0.05 K/mm3 (0.00-0.031); Immature Granulocyte Percent A 0.6 % (0-0.5); Lymphocytes Absolute Auto 1.55 K/mm3 (0.9-3.2); Lymphocytes Percent Auto 17.4 % (18.3-44.2); Mean Corpuscular HGB Conc 32.1 g/dl (32-36); Mean Platelet Volume 10.5 fl (7.4-10.4); Monocytes Absolute Auto 0.5 K/mm3 (0.1-0.6); Monocytes Percent Auto 5.9 % (2.6-8.5); Neutrophils Absolute Auto 6.7 K/mm3 (1.3-6.7); Neutrophils Percent Auto 75.1 % (45.5-73.1); Platelet Count Result 251 k/mm3 (150-375); White Blood Count 8.9 K/mm3 (4.5-10.0)
[2022-06-14 22:06] LABS: Alanine Aminotransferase 23 U/L (6-35); Albumin Level 4.8 g/dL (3.5-5.1); Alkaline Phosphatase 96 U/L (38-126); Anion Gap 10 mmol/L (8-16); Aspartate Amino Transferase 34 U/L (14-36); Bilirubin,Total 0.6 mg/dL (0.2-1.3); Blood Urea Nitrogen 13 mg/dL (7-17); Calcium 9.5 mg/dL (8.4-10.2); Carbon Dioxide 26 mmol/L (22-30); Chloride 100 mmol/L (98-107); Estimated CRCL calculation 50 ml/min; Estimated Glomerular Filt Rate > 60; Glucose 141 mg/dL (65-110); Lipase 84 U/L (23-300); Sodium 136 mmol/L (137-145)
--- NOTE | 2022-06-14 22:07 | ED.GENADULT ---
HPI - General Adult General Chief complaint: Nausea/Vomiting/Diarrhea Stated complaint: vomiting Time Seen by Provider: 06/14/22 21:43 History of Present Illness HPI narrative: Patient is a 56-year-old female who presents the emergency department with chief complaint of nausea vomiting patient started today which is unable to keep anything down reports she has had diarrhea times symptoms now had to sit on the toilet whenever she vomits. The patient reports she has had chills patient was similar to whenever she had fluid in the past. Patient states that she has no real abdominal pain but just feels well nauseated. Patient states she has no chest pain and no diaphoresis. Related Data Home Medications Medication Instructions Recorded Confirmed omeprazole 40 mg capsule,delayed 40 mg PO QAM 10/09/19 01/07/22 release simvastatin 20 mg tablet 20 mg PO HS 10/09/19 01/07/22 albuterol sulfate 90 mcg/actuation 1 inh inhalation QAM PRN 10/27/19 01/07/22 aerosol inhaler difficulty breathing cholecalciferol (vitamin D3) 25 25 mcg PO DAILY 06/20/20 01/07/22 mcg (1,000 unit) capsule (Vitamin D3) fluticasone propionate 115 2 puff inhalation DAILY 07/12/20 01/07/22 mcg-salmeterol 21 mcg/actuation HFA inhaler (Advair HFA) aspirin 81 mg tablet,delayed 81 mg PO DAILY 12/11/21 01/07/22 release Allergies Allergy/AdvReac Type Severity Reaction Status Date / Time erythromycin base Allergy Mild NAUSEA Verified 06/14/22 21:43 azithromycin Allergy Unknown unknown Verified 06/14/22 21:43 morphine AdvReac Mild RAPID Verified 06/14/22 21:43 HEART RATE Review of Systems Review of Systems: A 10 system review of systems was completed on the patient and is negative except for what is stated in the HPI. Nursing and ancillary documentation was reviewed. 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 GERD (gastroesophageal reflux disease) Hepatitis Hyperlipidemia Jaundice due to hepatitis Rectal polyp Rib fracture Seasonal allergies Sliding hiatal hernia Viral meningitis Surgical History Surgical History H/O colonoscopy History of bunionectomy of both great toes History of surgical removal of skin lesion removing fatty tumor on lower back History of total left hip arthroplasty (~07/21/18) History of total right hip arthroplasty (~07/11/20) History of tubal ligation Hx of appendectomy Hx of cataract removal with insertion of prosthetic lens Hx of cholecystectomy Hx of endoscopy Hx of tonsillectomy Family History Family History Mother Family history of lung cancer Sibling Family history of malignant neoplasm of urinary bladder Mother Family history of lung cancer Sibling Family history of malignant neoplasm of urinary bladder Father Family history of heart disease in male family member before age 55 Social History Social History Smoking status: Never smoker Alcohol intake: never Substance use: never Gender identity (if verbalized by the patient): Female Spiritual care concerns: No Exam Narrative: GENERAL: Well-appearing, well-nourished, and in no acute distress. HEAD: Normocephalic, atraumatic. EYES: PERRLA and EOMI. ENT: Nares clear, no rhinorrhea or epistaxis. Mucous membranes moist. NECK: Supple. CHEST: Clear to auscultation. No respiratory distress. HEART: Regular rate and rhythm. No murmur heard. Normal peripheral pulses. ABDOMEN: Soft, nontender, nondistended, normal active bowel sounds. EXTREMITIES: Normal range of motion. No edema. SKIN: Warm, dry, no rash. NEURO: No focal deficits. Alert and oriented x3. PSYCH: Normal mood and affect. Course Vital Signs
[2022-06-14 22:33] LABS: Influenza A QL RT-PCR Negative (Negative); Influenza B QL RT-PCR Negative (Negative); SARS-CoV-2 RNA PCR Negative
--- NOTE | 2022-06-14 22:50 | PC.NURSE ---
Patient ambulates to the bathroom with even steady unassisted gait to provide a urine specimen.
[2022-06-14 23:03] LABS: Appearance Urine Clear (Clear); Bilirubin Urine Negative (Negative); Color Urine Yellow (Yellow); Glucose Urine UA Negative (Negative); Ketones Urine 1+ mg/dL (Negative); Leukocyte Esterase Ur 1+ LEU/UL (Negative); Nitrate Urine Negative (Negative); Protein Urine Negative (Negative); Specific Grav Ur 1.015 (1.001-1.035); Urobilinogen Urine 0.2 mg/dL (<2.0); pH Urine 7.5 (5.0-9.0)
[2022-06-14 23:12] LABS: Bacteria Urine Trace /hpf; Mucus Urine Rare /lpf; RBC Urine 0-2 /hpf (0-2); Squamous Epithelial Cell Urine Rare /hpf (Few)
[2022-06-14 23:14] LABS: Add Urine Microscopic? YES; Blood Urine Trace-Intact (Negative)
[2022-06-14] MEDS: METOCLOPRAMIDE HCL INJ 10 MG/2 ML VIAL IV PUSH (23:19)
[2022-06-14] MEDS: diphenhydrAMINE HCl INJ 50 MG/ML VIAL IV PUSH (23:19)
[2022-06-15] VITALS: PULSE 93; RESP 16; O2SAT 98
[2022-06-15 00:01] VITALS: BP 162/82; PULSE 92; RESP 17; O2SAT 98
[2022-06-15 00:15] VITALS: PULSE 97; RESP 17; O2SAT 98
--- NOTE | 2022-06-15 00:24 | PC.NURSE ---
Patient states her nausea is gone but, my headache is still there, its a dull ache still at a 5/10. ERP notified.
[2022-06-15] MEDS: KETOROLAC 15 MG/ML VIAL (*BKC) IV PUSH (00:33)
[2022-06-15] MEDS: HYDROmorphone HCL INJ (*CRX) 1 MG/ML SYR 0.5 MG IV PUSH (00:34)
[2022-06-15 01:14] VITALS: BP 136/77; PULSE 78; RESP 14; O2SAT 94
== END 2022-06-15 01:26 | disposition home or self-care (01) ==
PROVIDERS: Emergency Provider Emergency Medicine; PCP Physician Assistant
DX: K52.9 Noninfective gastroenteritis and colitis, unspecified (principal); Z20.822 Contact with and (suspected) exposure to COVID-19; J45.909 Unspecified asthma, uncomplicated; E78.5 Hyperlipidemia, unspecified; K21.9 Gastro-esophageal reflux disease without esophagitis; Z96.643 Presence of artificial hip joint, bilateral; Z87.19 Personal history of other diseases of the digestive system; Z98.49 Cataract extraction status, unspecified eye; Z96.1 Presence of intraocular lens; Z79.82 Long term (current) use of aspirin; R82.998 Other abnormal findings in urine
CPT/HCPCS: 36415; 80053; 81001; 83690; 85025; 87086; 87088; 87502; 96361; 96374; 96375; 99284; C9803; J0131; J1170; J1200; J1885; J2405; J2765; J7030; U0003; U0005

== ENCOUNTER 2022-07-03 08:42 | Outpatient (CLI) | payer MEDICARE, SELFPAY ==
--- NOTE | ~2022-07-03 | CT_ITS ---
EXAMINATION:CT diagnostic chest wo con DATE: 07/03/2022 09:21 INDICATION: Multiple nodules of lung. TECHNIQUE: Computed tomography (CT) of the chest was performed without intravenous contrast. Automate d exposure control and iterative reconstruction technique were employed. The dose-length product (DLP ) was 65.02 mGy-cm. COMPARISON: Chest CT 11/04/2017 FINDINGS: There is mild scarring at the lung apices. There is a stable 7 mm part solid nodule in righ t upper lobe. There is a stable 7 mm pleural-based nodule in right lower lobe. There are a few other stable nodules in the lungs measuring up to 4 mm. No pleural effusion. The heart size is normal. No p ericardial effusion. There is a moderate-sized sliding hiatal hernia. There is mild thoracic spondylo sis. There is mild chronic anterior wedging of T3 vertebral body. There is a hemangioma in L2 vertebr al body. IMPRESSION: 1. Stable pulmonary nodules, likely benign. 2. Moderate-sized sliding hiatal hernia. Reviewed, dictated and finalized at location A.
[2022-07-03 10:56] LABS: Absolute Eosinophil Count 0.2 K/mm3 (0.0-0.3)
--- NOTE | 2022-07-03 12:22 | WPDPFTINT ---
PFT Procedure Performed PFT Procedure Performed Spirometry with Pre/Post Bronchodilator Plethysmography (Lung Vol) Diffusing Cap (DLCO) Flow Vol Loop PFT Interpretation This is a pulmonary function test with pre and post-bronchodilator spirometry, plethysmography and diffusing capacity. The test was performed and results interpreted in accordance with the 2019 and 2005 ATS/ERS Task Force guidelines respectively using the Global Lung Function Initiative-2012 reference equations. Patient demonstrated good effort and cooperation. Reproducibility criteria were met. The quality of the pre bronchodilator spirometry maneuver was Grade B and post bronchodilator spirometry maneuver was Grade A. Findings: Spirometry: The contour the inspiratory and expiratory flow tracing are normal. The pre bronchodilator FVC is 2.66 L, 101% predicted. The pre bronchodilator FEV1 is 1.84 L, 91% predicted. The pre bronchodilator FEV1: FVC ratio 69%. The post bronchodilator FVC is 2.81 L, representing a 6% increase. The post bronchodilator FEV1 is 1.94 L, representing a 6% increase. The post bronchodilator FEV1: FVC ratio 69%. Plethysmography: The total lung capacity is 5.09, 104% predicted. The functional residual capacity is 3.23 L, 115% predicted. The residual volume is 2.43 L, 110% predicted. Diffusing capacity: The diffusing capacity unadjusted for hemoglobin and carboxyhemoglobin is 16.8, 86% predicted. The diffusing capacity adjusted for alveolar volume is 3.99, 93% predicted. Impression: The spirometry is normal without evidence of an obstructive abnormality. There is no significant improvement after inhaling a single dose of albuterol. The lung volumes are normal. The diffusing capacity is normal. There are no prior studies for comparison
[2022-07-06 10:09] LABS: Immunoglobulin G, Serum 856 mg/dL (600-1540); Immunoglobulin G1 539 mg/dL (382-929); Immunoglobulin G2 133 mg/dL (241-700); Immunoglobulin G3 38 mg/dL (22-178); Immunoglobulin G4 28.8 mg/dL (4.0-86.0)
[2022-07-10 18:19] LABS: Alpha-1-Antitrypsin, QN 128 mg/dL (83-199)
== END 2022-07-03 08:43 | disposition home or self-care (01) ==
PROVIDERS: PCP Physician Assistant; Visit Provider Nurse Practitioner
DX: R91.8 Other nonspecific abnormal finding of lung field (principal); K44.9 Diaphragmatic hernia without obstruction or gangrene; J45.909 Unspecified asthma, uncomplicated
CPT/HCPCS: 36415; 71250; 82103; 82104; 82784; 82785; 82787; 85048; 86003; 94060; 94726; 94729

== ENCOUNTER → 2022-09-10 11:27 | Outpatient (CLI) | payer MEDICARE, SELFPAY ==
--- NOTE | ~2022-09-10 | MM_ITS ---
EXAMINATION: MM screening daniel BI w joe HISTORY: Screening TECHNIQUE: Craniocaudal and mediolateral oblique 3-D tomosynthesis images were obtained and synthetic 2-D images were generated. CAD analysis was submitted and interpreted. COMPARISON: Comparison to multiple prior studies sequentially, with oldest reviewed study dated 01/2015. BREAST PARENCHYMAL COMPOSITION: There are scattered areas of fibroglandular density. FINDINGS: There is no evidence of suspicious mass, calcification, or architectural distortion to sugg est malignancy in either breast. There has been no suspicious interval change. IMPRESSION: 1. No mammographic evidence of malignancy. 2. Recommend routine screening mammography in one year. BI-RADS Category 1: Negative Reviewed, dictated and finalized at location B. K BREAKER
== END ==
PROVIDERS: PCP Physician Assistant; Visit Provider Physician Assistant
DX: Z12.31 Encounter for screening mammogram for malignant neoplasm of breast (principal)
CPT/HCPCS: 77063; 77067

== ENCOUNTER → 2022-10-18 10:02 | Outpatient (CLI) | payer MEDICARE, SELFPAY ==
--- NOTE | ~2022-10-18 | XR_ITS ---
Right Shoulder Technique: AP and axillary views were obtained. Clinical History: Pain Findings: No fracture or dislocation is seen. Osseous alignment is anatomic. The glenohumeral and acr omioclavicular joint spaces are preserved. Soft tissues are unremarkable. Impression: Unremarkable right shoulder radiographs. Reviewed, dictated and finalized at [facility]. GER PAYMENT Impression: Unremarkable right shoulder radiographs.
--- NOTE | ~2022-10-18 | XR_ITS ---
Left Shoulder Technique: AP and axillary views were obtained. Clinical History: Pain Findings: No fracture or dislocation is seen. Osseous alignment is anatomic. The glenohumeral and acr omioclavicular joint spaces are preserved. Soft tissues are unremarkable. Impression: Unremarkable left shoulder radiographs. Reviewed, dictated and finalized at [facility]. S SUPPORT COORDINATOR Impression: Unremarkable left shoulder radiographs.
== END ==
PROVIDERS: PCP Physician Assistant; Visit Provider Physician Assistant
DX: M25.511 Pain in right shoulder (principal); M25.512 Pain in left shoulder
CPT/HCPCS: 73030

== ENCOUNTER 2023-04-02 06:14 | Day surgery (SDC) | payer MEDICARE, SELFPAY ==
[2023-03-24 12:27] VITALS: BMI 23.7
[2023-04-02 09:51] VITALS: BP 159/72; PULSE 73; RESP 18; TEMP 36.5; O2SAT 99
[2023-04-02] MEDS: LACTATED RINGERS 1,000 ML 150 ML IV CONT (10:01)
--- NOTE | 2023-04-02 10:05 | WPDANESEPPF ---
Anes - Initial Pre Proc Eval Procedure: Operation Date: 04/02/23 11:15 Proposed Procedures p Colonoscopy - Ezra Núñez MD Date/Time: 04/02/23 10:05 Surgeon: Ezra Núñez MD Pre Op Diagnosis: hx of colon polyps Patient Data Age: 77 Gender: F Height: 1.6 m Weight: 60.6 kg Last Vital Signs Temp 97.7 F 04/02/23 09:51 Pulse 73 04/02/23 09:51 Resp 18 04/02/23 09:51 BP 159/72 H 04/02/23 09:51 Pulse Ox 99 04/02/23 09:51 O2 Del Method Room Air 04/02/23 09:51 Allergies Allergy/AdvReac Type Severity Reaction Status Date / Time erythromycin base Allergy Mild NAUSEA Verified 04/02/23 09:50 azithromycin Allergy Unknown unknown Verified 04/02/23 09:50 morphine AdvReac Mild RAPID Verified 04/02/23 09:50 HEART RATE Home Medications Medication Instructions Recorded Confirmed Type omeprazole 40 mg capsule,delayed 40 mg PO QAM 10/09/19 03/24/23 History release simvastatin 20 mg tablet 20 mg PO HS 10/09/19 03/24/23 History albuterol sulfate 90 mcg/actuation 1 inh inhalation QAM PRN 10/27/19 03/24/23 History aerosol inhaler difficulty breathing cholecalciferol (vitamin D3) 25 25 mcg PO DAILY 06/20/20 03/24/23 History mcg (1,000 unit) capsule (Vitamin D3) fluticasone propionate 115 2 puff inhalation DAILY 07/12/20 03/24/23 History mcg-salmeterol 21 mcg/actuation HFA inhaler (Advair HFA) aspirin 81 mg tablet,delayed 81 mg PO DAILY 12/11/21 03/24/23 History release Patient hx anesthesia problems: none Family hx anesthesia problems: none Results Review: All pre-operative results and documents have been reviewed as part of the pre-operative evaluation. 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 GERD (gastroesophageal reflux disease) Hepatitis Hyperlipidemia Jaundice due to hepatitis Rectal polyp Rib fracture Seasonal allergies Sliding hiatal hernia Viral meningitis Surgical History Surgical History H/O colonoscopy History of bunionectomy of both great toes History of surgical removal of skin lesion removing fatty tumor on lower back History of total left hip arthroplasty (~07/21/18) History of total right hip arthroplasty (~07/11/20) History of tubal ligation Hx of appendectomy Hx of cataract removal with insertion of prosthetic lens Hx of cholecystectomy Hx of endoscopy Hx of tonsillectomy Family History Family History Mother Family history of lung cancer Sibling Family history of malignant neoplasm of urinary bladder Mother Family history of lung cancer Sibling Family history of malignant neoplasm of urinary bladder Father Family history of heart disease in male family member before age 55 Social History Social History Smoking status: Never smoker Alcohol intake: never Substance use: never Substance use type: does not use Living arrangements: with family Gender identity (if verbalized by the patient): Female Spiritual care concerns: No Anes - Eval Final PreProcedure Day of Procedure 04/02/23 10:05 Patient weight: normal Heart: regular rate and rhythm Lungs: clear to auscultation Airway: Mallampati scale class II Neurological: alert and oriented Last oral intake: >/= 8 hours ASA classification: III Emergent: no Anesthetic plan: proceed Anesthesia type and monitoring: general GIVS and standard monitoring Results Review: All pre-operative results and documents have been reviewed as part of the pre-operative evaluation. Informed Consent: The patient's anesthetic plan and its attendant risks and benefits were discussed with the patient/family/POA. Questions were solicited and answers provi
--- NOTE | 2023-04-02 10:58 | PM.HPGS ---
History of Present Illness History of Present Illness Consent: Risks, benefits, and alternatives have been discussed and questions answered. Patient agrees to proceed with procedure. Chief complaint: hx of colon polyps Narrative: Michelle Aly is a 77 year old female referred for colon cancer screening. She has a history of polyps. 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 GERD (gastroesophageal reflux disease) Hepatitis Hyperlipidemia Jaundice due to hepatitis Rectal polyp Rib fracture Seasonal allergies Sliding hiatal hernia Viral meningitis Surgical History Surgical History H/O colonoscopy History of bunionectomy of both great toes History of surgical removal of skin lesion removing fatty tumor on lower back History of total left hip arthroplasty (~07/21/18) History of total right hip arthroplasty (~07/11/20) History of tubal ligation Hx of appendectomy Hx of cataract removal with insertion of prosthetic lens Hx of cholecystectomy Hx of endoscopy Hx of tonsillectomy Family History Family History Mother Family history of lung cancer Sibling Family history of malignant neoplasm of urinary bladder Mother Family history of lung cancer Sibling Family history of malignant neoplasm of urinary bladder Father Family history of heart disease in male family member before age 55 Social History Social History Smoking status: Never smoker Alcohol intake: never Substance use: never Substance use type: does not use Living arrangements: with family Gender identity (if verbalized by the patient): Female Spiritual care concerns: No Meds Home Medications and Allergies Home Medications Medication Instructions Recorded Confirmed Type omeprazole 40 mg capsule,delayed 40 mg PO QAM 10/09/19 03/24/23 History release simvastatin 20 mg tablet 20 mg PO HS 10/09/19 03/24/23 History albuterol sulfate 90 mcg/actuation 1 inh inhalation QAM PRN 10/27/19 03/24/23 History aerosol inhaler difficulty breathing cholecalciferol (vitamin D3) 25 25 mcg PO DAILY 06/20/20 03/24/23 History mcg (1,000 unit) capsule (Vitamin D3) fluticasone propionate 115 2 puff inhalation DAILY 07/12/20 03/24/23 History mcg-salmeterol 21 mcg/actuation HFA inhaler (Advair HFA) aspirin 81 mg tablet,delayed 81 mg PO DAILY 12/11/21 03/24/23 History release Allergies Allergy/AdvReac Type Severity Reaction Status Date / Time erythromycin base Allergy Mild NAUSEA Verified 04/02/23 09:50 azithromycin Allergy Unknown unknown Verified 04/02/23 09:50 morphine AdvReac Mild RAPID Verified 04/02/23 09:50 HEART RATE Vital Signs Vital Signs - 24 hr 04/02/23 09:51 Temperature 36.5 C Pulse Rate 73 Respiratory Rate 18 Blood Pressure 159/72 H Pulse Oximetry 99 Oxygen Delivery Room Air Exam Const: General: alert Orientation/consciousness: patient oriented x3 Resp: Auscultation: clear to auscultation bilaterally Cardio: Rhythm: regular rhythm GI: GI Palp: Yes Soft to palpation and No Tenderness to palpation present (GI) Neuro: General: patient oriented x3 Assessment and Plan Assessment and plan (1) Colon cancer screening: Code(s): Z12.11 - Encounter for screening for malignant neoplasm of colon Status: Acute Assessment and Plan: Colonoscopy with possible biopsy or polypectomy or cautery or injection of substances.
[2023-04-02 11:00] VITALS: BP 107/60; PULSE 74; RESP 15; O2SAT 98
[2023-04-02 11:10] VITALS: BP 109/62; PULSE 70; RESP 18; O2SAT 100
[2023-04-02 11:20] VITALS: BP 128/72; PULSE 70; RESP 17; O2SAT 100
== END 2023-04-02 11:27 | disposition home or self-care (01) ==
PROVIDERS: PCP Physician Assistant; Visit Provider Internal Medicine Gastroenterology
PROC: 0DJD8ZZ Inspection of Lower Intestinal Tract, Via Natural or Artificial Opening Endoscopic (ICD-10-PCS; CPT 45378; principal; 2023-04-02 11:15)
DX: Z12.11 Encounter for screening for malignant neoplasm of colon (principal); D12.0 Benign neoplasm of cecum; K64.4 Residual hemorrhoidal skin tags; K64.8 Other hemorrhoids; K57.30 Diverticulosis of large intestine without perforation or abscess without bleeding; J45.909 Unspecified asthma, uncomplicated; E78.5 Hyperlipidemia, unspecified; K21.9 Gastro-esophageal reflux disease without esophagitis; Z79.51 Long term (current) use of inhaled steroids; Z79.82 Long term (current) use of aspirin
CPT/HCPCS: 45380; 88305; J2704; J7120

== ENCOUNTER 2023-07-08 07:17 | Outpatient (CLI) | payer MEDICARE, SELFPAY ==
--- NOTE | ~2023-07-08 | CT_ITS ---
Clinical Indication: Pulmonary nodules CT Scan of the Chest with Contrast: Technique: Contiguous sections were acquired throughout the chest after intravenous administration of 75 cc of Omnipaque 350. Dose reduction technique was used on this scan by utilizing automated exposu re control and iterative reconstruction technique. The dose-length product (DLP) was 708.64 mGy-cm. COMPARISON: 07/03/2022 Findings: There is no evidence of any significant mediastinal, hilar or axillary lymphadenopathy. No large cent ral pulmonary embolus evident. There is no evidence of aortic dissection or aneurysm. There is no evidence of pleural or pericardial effusion. There is mild biapical scarring. Stable 6 related groundglass right upper lobe pulmonary nodule (axia l image 43). Stable 6 mm pleural-based nodule the right lower lobe (axial image 79). There is linear scarring or atelectasis at the left lung base. Images through the upper abdomen reveal moderate hiatal hernia. Impression: Stable pulmonary nodules, as detailed above. Moderate hiatal hernia. Reviewed, dictated and finalized at location . Impression: Stable pulmonary nodules, as detailed above. Moderate hiatal hernia.
--- NOTE | ~2023-07-08 | CT_ITS ---
CT scan of the Neck Technique: 2.5 mm axial scans were obtained through the neck after intravenous administration of 75 c c Omnipaque 350. Coronal and sagittal reconstructions of the neck were obtained. Dose reduction techn ique was used on this scan by utilizing automated exposure control and iterative reconstruction techn ique. The dose-length product (DLP) was 708.64 mGy-cm. Clinical History: Lymphadenopathy Findings: There is no evidence of any significant cervical lymphadenopathy. Several small, nonenlarged jugulo- digastric and posterior cervical lymph nodes are noted bilaterally. Parapharyngeal spaces appear norm al bilaterally. The parotid and submandibular glands appear normal. The pharyngeal mucosal spaces appear normal. No soft tissue masses are seen in the neck. The thyroid gland appears normal. Images of the lung apices reveal 6 mm right upper lobe groundglass pulmonary nodule (series 4 image 42). Impression: No cervical lymphadenopathy evident. 6 mm groundglass right upper lobe pulmonary nodule. This is stable as compared to prior chest CT date d 07/03/2022. Reviewed, dictated and finalized at location . Impression: No cervical lymphadenopathy evident. 6 mm groundglass right upper lobe pulmonary nodule. This is stable as compared to prior chest CT dated 07/03/2022.
== END 2023-07-08 07:18 | disposition home or self-care (01) ==
LOC: ANHIMG 07:18
PROVIDERS: PCP Physician Assistant; Visit Provider Nurse Practitioner
DX: R59.0 Localized enlarged lymph nodes (principal); R91.1 Solitary pulmonary nodule; K44.9 Diaphragmatic hernia without obstruction or gangrene; R91.8 Other nonspecific abnormal finding of lung field
CPT/HCPCS: 70491; 71260; Q9967

== ENCOUNTER 2023-09-17 07:29 | Outpatient (CLI) | payer MEDICARE, SELFPAY ==
--- NOTE | ~2023-09-17 | XR_ITS ---
AP view of the pelvis and AP and lateral views of the bilateral hips Clinical history: Pain Findings: No acute fracture or dislocation is seen. Bilateral hip arthroplasties are present. No hard talley convocation evident.. Soft tissues are unremarkable. Impression: No acute abnormality is seen. Bilateral hip arthroplasties in place. Reviewed, dictated and finalized at location . T MAKER Impression: No acute abnormality is seen. Bilateral hip arthroplasties in place.
== END 2023-09-17 07:30 | disposition home or self-care (01) ==
PROVIDERS: PCP Physician Assistant; Visit Provider Orthopaedic Surgery
DX: Z47.1 Aftercare following joint replacement surgery (principal); Z96.643 Presence of artificial hip joint, bilateral
CPT/HCPCS: 73521

== ENCOUNTER 2024-02-02 10:40 | Outpatient (CLI) | payer MEDICARE, SELFPAY ==
--- NOTE | ~2024-02-02 | MM_ITS ---
EXAMINATION: MM screening [facility] BI w joe HISTORY: Screening mammogram TECHNIQUE: Craniocaudal and mediolateral oblique 3-D tomosynthesis images were obtained and synthetic 2-D images were generated. CAD analysis was submitted and interpreted. COMPARISON: 09/10/2022, 07/17/2021, 05/05/2020 BREAST PARENCHYMAL COMPOSITION:Not Dense. There are scattered areas of fibroglandular density. FINDINGS: No suspicious mass, calcification, or architectural distortion are identified in either ismael ast to suggest malignancy. There has been no suspicious interval change. IMPRESSION: No mammographic evidence of malignancy. Recommend routine screening mammography in one year. BI-RADS Category 1: Negative Reviewed, dictated and finalized at location .
--- NOTE | ~2024-02-02 | DEXA_ITS ---
Bone Density Report Name: HYACINTH MCCOY Age: 78 Sex: Female Ethnicity: White Date of : 1945 Indication: postmenopausal; screening for osteoporosis; asthma or emphysema; Referring Provider: GREG, DOMONIQUE Study: Bone densitometry was performed. Exam Date: February 02, 2024 Accession number: [id number] Bone Density: Region BMD T-score Z-score Classification AP Spine (L1-L4) 1.094 0.4 2.9 Normal World Health Organization criteria for BMD impression classify patients as: Normal (T-score at or above -1.0), Osteopenia (T-score between -1.0 and -2.5), or Osteoporosis (T-score at or below -2.5). Previous Exams: Region Exam Age BMD T-score BMD Change BMD Change Date g/cm2 vs Baseline vs Previous AP Spine(L1-L4) 02/02/2024 78 1.094 0.4 0.003 0.057* 09/06/2021 75 1.037 -0.1 -0.054* 0.064* 11/02/2014 68 0.973 -0.7 -0.118* -0.118* 01/10/2010 64 1.091 0.4 *Denotes significance at 95% confidence level, LSC for AP Spine = 0.022 g/cm2 Clinical Information Provided by Patient: Has used the following medications: Vitamin D, MTV Has the following medical conditions: Asthma or Emphysema Patient maximum height was 63 Menopause Age: 55 Drinks caffeinated beverages Onset of menses at age 12 Number of children 3 Impression: The patient has normal bone mass. No significant bone loss was observed. Discussion: LOW RISK OF FRACTURE; BONE DENSITY IS WELL ABOVE THE MINIMUM DESIRABLE LEVEL AND ABOVE AVERAGE FOR AGE AND SEX AT ALL SKELETAL SITES TESTED. This person's bone density is above expected limits for age and sex. This is rarely clinically significant, but should be pursued if there are significant musculoskeletal complaints. The patient should follow a healthful lifestyle (good nutrition with adequate calcium and vitamin D, and appropriate weight-bearing exercise). Follow-Up: Consider repeating this study in 5 years or sooner if there is some new clinical indication. Reported by: ALEC on 02/02/2024 11:05:00 AM. Reviewed, dictated and finalized at location [place] SAUCEDA
== END 2024-02-02 10:41 ==
PROVIDERS: PCP Physician Assistant; Visit Provider Physician Assistant
DX: Z12.31 Encounter for screening mammogram for malignant neoplasm of breast (principal); Z78.0 Asymptomatic menopausal state; Z13.820 Encounter for screening for osteoporosis
CPT/HCPCS: 77063; 77067; 77080

== ENCOUNTER 2024-04-26 10:59 | Outpatient (CLI) | payer MEDICARE, SELFPAY ==
--- NOTE | ~2024-04-26 | US_ITS ---
US pelvic complete w TV Ordering provider: Scarlett Bales, CATE History: . Abdominal bloating . Comparison: None. Technique: Transabdominal and endovaginal ultrasound of the pelvis (Doppler ultrasound interrogation techniques used as needed for this exam.) FINDINGS: CERVIX: Normal. UTERUS: Measures 4.1x 2x 3.5 cm in length which is within normal limits and is anteverted. No myomet rial masses. Retroverted uterus. ENDOMETRIUM: Normal in thickness measuring 4 mm. No endometrial masses, cysts or fluid. CUL DE SAC: No free fluid. RIGHT OVARY: Not visualized. LEFT OVARY: Not visualized. ADNEXA: Dilated vessels on the left side. IMPRESSION: Nonvisualization of both ovaries. Dilated vessels on the left side. Otherwise, normal pelvic ultrasou nd. Reviewed, dictated and finalized at location A. IMPRESSION: Nonvisualization of both ovaries. Dilated vessels on the left side. Otherwise, normal pelvic ultrasound.
== END 2024-04-26 11:00 ==
LOC: MICIMG 11:00
PROVIDERS: PCP Physician Assistant; Visit Provider Physician Assistant
DX: R14.0 Abdominal distension (gaseous) (principal)
CPT/HCPCS: 76830; 76856

== ENCOUNTER 2025-05-12 09:47 | Outpatient (CLI) | payer MEDICARE, SELFPAY ==
--- OUTSIDE RECORDS SUMMARY | 2025-05-12 10:00 | XMS_ITS ---
Author Organization [employer] [place] ([address]) Address [address] [place] [id number] Care Team Providers Care Director Of Maintenance Name Role Phone Scarlett Bales Primary Care Provider Unavailab Coleen Chavez Unavailable [phone] Queta Powell Unavailable Unavailable ZZ-Migration, Provider Unavailable Unavailab le Allergies Allergen (clinical drug ingredient) Drug/Non Drug Allergy documented on EMR Reaction Allergy Type Onset Date Status erythromycin Erythromycin stomach upset Drug Allergy Active morphine Morphine other reaction Drug Allergy Ac tive REASON FOR VISIT [facility] Encounter Medications Medication SIG (Take, Route, Frequency, Duration) Notes Start Date End Date Status Ventolin HFA 108 (90 Base) MCG/ACT 2 puff(s) inhaled Q4-6 hours, PRN and per the asthma action plan; Duration: 30 day(s) Active Advair Diskus 250 MCG-50 MCG 1 INH INHALED 2 TIMES A DAY *Please review and pick correct strength-formulatio n from IXcelleratespan options. If intended option is not shown, discontinue and re-order from Quick Search* Active Fluticasone-Salmeter ol 250 MCG-50 MCG 1 INH INHALED 2 TIMES A DAY; Duration: 30 DAY(S) *Please review and pick correct strength-formulatio n from IXcelleratespan options. If intended option is not shown, [...] Active Encounters Encounter Location Date Provider Diagnosis [address] [address] 03/13/2024 Provider Aleksandra Moderate persistent asthma, uncomplicated [...] * Michelle ALYDOB:1945 ([age] yo F)Acc No.[id number]:03/13/2024 Patient: Michelle PICKETT Provider: Elio Potts :1945 A ge:78 Y S ex:Female Date:03/13/2024 Address:[address] [place] [address] [address], [phone] Pcp:Scarlett Bales Subjective: * Chief Complaints: [...] *Please review and pick correct strength-formulation from [employer] options. If intended option is not shown, discontinue and re-order from Quick Search* * Allergies: M orphine: other reaction - Side Effects, Erythromycin: stomach upset. Objective: * Vitals: Assessment: * Assessment: 1. M oderate persistent asthma, uncomplicated - J45.40 Plan: * Treatment: * Billing Information: * Visit Code: * Procedure Codes: * Electronic signature of Daron CRUM-Migration on 05/12/2025 at 10:00 AM CDT Sign off status: Pending * Provider: Elio garcia Migration Date: 0 03/13/2024 Generated for Seble hidalgo/Jj/Denilsonitting on: 0 05/12/2025 10:00 AM CDT
--- OUTSIDE RECORDS SUMMARY | 2025-05-12 10:00 | XMS_ITS | Clinical Summary ---
Author Organization [facility] Address [address] [place] [address] Care Team Providers Care Cytologist Name Role Phone Scarlett Bales Primary Care Pr ovider Allergies Active Allergy Reactions Criticality Noted Date Comments Azithromycin Vomiting Low 06/17/2024 Morphine Palpitations Low 06/17/2024 Medications omeprazole (PriLOSEC) 40 mg capsule Take 1 capsule (40 mg total) by mouth daily 4 Active simvastatin (ZOCOR) 20 mg tablet Take 1 tablet (20 mg total) by mouth daily 4 Active aspirin 81 mg enteric coated tablet Take 1 tablet (81 mg total) by mouth daily Active losartan (COZAAR) 25 mg tablet Take 1 tablet (25 mg total) by mouth daily 4 Active famotidine (PEPCID) 40 mg tabletIndication s:Gastroesophage al reflux disease without esophagitis Take 1 tablet (40 mg total) by mouth daily 30 tablet 11 4 06/17/20 25 Active Additional Information Patient not taking.Reported on 12/29/2024 Advair Diskus 250-50 mcg/dose diskus inhaler Inhale 1 puff 2 (two) times a day 60 each 11 5 Active albuterol HFA (PROVENTIL HFA,VENTOLIN HFA,PROAIR HFA) 90 mcg/actuation inhaler every 6 hours 3 Active fluticasone propion-salmeter oL (ADVAIR DISKUS) 250-50 mcg/dose diskus inhalerIndicatio ns:Mild persistent asthma without complication Inhale 1 puff 2 (two) times a day Rinse mouth with water after use. Do not swallow. PLEASE FILL GENERIC PER INSURANCE REQUIREMENT 60 each 11 5 Active Active Problems Problem Noted Date Diagnosed Date Dyspnea on exertion 06/17/2024 Assessment & Plan (06/17/2024 12:51 PM CDT): This is multifactoral but has worsened over the last several years. Check echocardiogram Heterozygous alpha 1-antitrypsin deficiency 05/30 Assessment & Plan (12/29/2024 2:18 PM CDT): , last level was 120 We will plan to recheck a level this year She has informed her siblings and children for testing Assessment & Plan (06/17/2024 12:50 PM CDT): MS with good circulating levels She has informed her siblings and children for testing Asthma 02/12/2014 Overview (01/01/2017): Asthma Assessment & Plan (12/29/2024 2:20 PM CDT): Per her insurance regulations I have sent for generic Advair 250/50 to be used b.i.d. We have discussed indications for albuterol use and I have encouraged her to use this after climbing steps or prior to significantly exertional activity Avoid triggers Allergies are likely a contributor, she has continued to decline SCIT Continue OTC antihistamines Saline nasal rinses We have discussed signs and symptoms that would require earlier evaluation or change to her plan of care Assessment & Plan (06/17/2024 12:52 PM CDT): Continue Advair 250-50 BID ALbuterol as needed only, discussed indications for use Gastroesophageal reflux disease 02/12/2014 Overview (01/01/2017): GERD (Gastroesophageal Reflux Disease) Assessment & Plan (12/29/2024 2:19 PM CDT): Continue PPI and diet modification Continue famotidine 40 mg po daily Avoid trigger foods and eating 2-3 hours before bed She has a moderate size hiatal hernia, if her symptoms were to worsen I would recommend following with GI and possible surgical evaluation Assessment & Plan (06/17/2024 12:51 PM CDT): Continue PPI and diet modification Start famotidine 40 mg po daily Avoid trigger foods and eating 2-3 hours before bed Pure hypercholesterolemia 02/12/2014 Overview (01/01/2017): PURE HYPERCHOLESTEROLEM Disorder of bone and cartilage 02/12/2014 Overview (01/03/2017): BONE & CARTILAGE DIS NOS Immunizations Immunization Administration Dates Next Due Influenza, Trivalent, IM (MDV) 06/20/2008 Pneumococcal Polysaccharide PPV23 09/29/2000 Tdap 06/20/2008 Surgical History Surgery Date Site/Laterality Comments HIP SURGERY 09/29/2017 - 09/28/2018 Left HIP SURGERY 09/29/2019 - 09/28/2020 Right Medical History Medical History Date Comments Asthma Melanoma (HCC) Hypertension Family History Medical History Relation Name Comments Cancer Brother 1 Asthma Brother 2 Muscular dystrophy Brother 3 Transient ischemic attack Brother 4 No Known Problems Brother 5 Heart disease Father Cancer Mother Relation Name Status Comments Brother 1 Brother 2 Alive Brother 3 Brother 4 Alive Brother 5 Alive Father Mother Social History Tobacco Use Types Packs/Day Years Used Date Smoking Tobacco: Never Tobacco Cessation:Counseling Given: Not Answered Alcohol Use Standard Drinks/Week Comments Not Currently 0 (1 standard drink = 0.6 oz pur e alcohol) Personal Safety Answer Date Recorded Have you ever been in or are you currently in a harmful physical or emotional relationship or is someone making you feel afraid or unsafe? 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 Gender Identity Not on file Sexual Orientation Not on file Obstetrics History Last Filed Vital Signs Vital Sign Reading Time Taken Comments Blood Pressure 179/80 01/06/2025 7:52 PM CDT Pulse 66 01/06/2025 7:50 PM CDT Temperature 36.9 C (98.5 F) 01/06/2025 7:50 PM CDT Respiratory Rate 18 01/06/2025 7:50 PM CDT Oxygen Saturation 100% 01/06/2025 7:50 PM CDT Inhaled Oxygen Concentration - - Weight 63.5 kg (140 lb) 01/06/2025 7:50 PM CDT Height 160 cm (5' 3) 01/06/2025 7:50 PM CDT Body Mass Index 24.8 01/06/2025 7:50 PM CDT Plan of Treatment Health Maintenance Due Date Last Done Comments Depression Screening 1945 Fall Risk Assessment 1945 Hepatitis C Screening 1945 Osteoporosis Screening-Bone Density Scan 1945 Hepatitis B Screening 12/13/1965 Well Visit 65+ 12/13/2012 Covid-19 Vaccine (2023-2 5 season) 2024 08/05/2023, 07/09/2022, 07/17/2021, Additional history exists Influenza Vaccine (#1) 2025 , 06/05/2022, 05/18/2021, Additional history exists DTaP/Tdap/Td Vaccine (4 - Td or Tdap) 06/01/2033 06/01/2023, 06/02/2012, 06/20/2008 Colon Cancer Screening-Colonoscopy Discontinued 02/23/2013 Pneumococcal vaccine 65+ Completed 023, 03/05/2018, 09/29/2012, Additional history exists Zoster Vaccine Completed 08/05/2023, 11/2022, 09/29/2013, Additional history exists Procedures Procedure Name Priority Date/Time Associated Diagnosis Comments COLONOSCOPY 02/23/2013 12:00 AM CDT from Last 3 Months or Most Recently Relevant to Health Maintenance Results * COLONOSCOPY (02/23/2013 12:00 AM CDT) Anatomical Region Laterality Modality Other Narrative 02/23/2013 12:00 AM CDT Ordered by an unspecified provider. Procedure Note Provider, MD Cristi - 02/23/2013 12:00 AM CDT PROCEDURE REPORT Patient: MICHELLE MCCOY Account: [id number] Room No: : 1945 Patient Type: SDS Attend.: Michael Brock M.D. Admit Date: 02/23/2013 Dict.: Michael Brock M.D. Disch. Date: 02/23/2013 NAME OF PROCEDURE: Colonoscopy. HISTORY A 67-year-old female with a prior history of colonic polyps. PHYSICAL EXAMINATION GENERAL: Well developed female. LUNGS: Clear. CARDIOVASCULAR EXAMINATION: Unremarkable. DESCRIPTION OF PROCEDURE Colonoscopy was performed with a Rewardpod video endoscope. Patient was premedicated by anesthesia. On digital exam, there is grade IIIhemorrhoids. We inserted the endoscope and advanced it to the cecum. The colon waswell prepped and visualized. We carefully searched the colonic mucosa andcould find no evidence of inflammation or neoplasia anywhere through the lengthof the bowel. Patient tolerated the procedure without difficulty. POSTOPERATIVE DIAGNOSIS Hemorrhoidal disease. Otherwise normal. PLAN Surveillance in five years in light of past history. Michael Brock M.D. DR/samir TD: 02/23/2013 14:03 CC: Aliza Ybarra M.D. Authenticated by Michael Brock MD On 03/01/2013 09:40:27 AM Historical Provider ENDOSCOPY PROCEDURES Albertina l Result from Last 3 Months or Most Recently Relevant to Health [place] [address] [facility] MEDICARE ADVANTAGE Care Teams Cytologist Relationship Specialty Start Date End Date Scarlett Bales PA PCP - General Physician Grinder Hand 12/02/23
--- OUTSIDE RECORDS SUMMARY | 2025-05-12 10:00 | XMS_ITS | Clinical Summary ---
Author Organization [facility] Address [address] [place] [address] Care Team Providers Care Evs Manager Name Role Phone Kari Garay MD Primary Care Provider [phone] Source Comments [facility],non-owned Affiliates and Associated Physician Practices is amultiple site organization consisting of ambulatory clinics and hospital sitesin [place], [place], [place] and [place]. This disclosure is being madepursuant to the Care Everywhere program and may not contain all information available regarding this patient. 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 Gender Identity Not on file Sexual Orientation Not on file Plan of Treatment Health Maintenance Due Date Last Done Comments BONE DENSITY TESTING 1945 MEDICARE AWV 12 MONTHS 1945 HEPATITIS C SCREENING 12/09/1965 DTAP/TDAP/TD VACCINES (1 - Tdap) 12/13/1966 PNEUMOCOCCAL VACCINE 50+ (1 of 1 - PCV) 12/13/1997 ZOSTER VACCINE (1 of 2) 12/13/1997 Respiratory Syncytial Virus (RSV) Vaccine Pt: or over 60 yrs (1 - 1-dose 75+ series) 12/13/2022 COVID-19 VACCINE ( - 2023-2 5 season) 2024 DEPRESSION SCREENING 09/29/2024 INFLUENZA VACCINE (#1) 2025 HEPATITIS B VACCINE Aged Out No longe r eligible based on patient's age to complete this topic HIB VACCINE Aged Out No longer eligi ble based on patient's age to complete this topic HPV VACCINE Aged Out No longer eligi ble based on patient's age to complete this topic MENINGOCOCCAL (Group B) VACC INE SHARED DECISION-MAKING Aged Out No longer eligibl e based on patient's age to complete this topic MENINGOCOCCAL GROUPS A/C/Y/W VACCINE Aged Out No longer eligible b ased on patient's age to complete this topic Insurance MEDICARE [facility] Member Subscriber Plan / Payer (Ef fective for All Dates) Name:Michelle Mccoy Relation to Subscriber:Self Name:MICHELLE MCCOY Payer ID:Not on file Group ID:Not on file Type:[employer] [facility] Address: [address] [place] [address] MEDICARE Care Teams Evs Manager Relationship Specialty Start Date End Date Kari Garay MD [address] [place], [place] [id number] PCP - General 09/27/08
--- NOTE | 2025-05-12 10:42 | ECG_ITS ---
Test Date: 2025-05-12 11:00:55 Measurements Intervals [place] Rate: 65 P: 13 OK: 151 QRS: 3 QRSD: 114 T: 41 QT: 399 QTc: 417 Interpretive Statements SINUS RHYTHM DELAYED PRECORDIAL R/S TRANSITION LOW QRS VOLTAGE IN PRECORDIAL LEADS MINIMAL Q WAVES- HIGH LATERAL LEADS BASELINE ARTIFACT- I, II, III, AVR, AVL, AVF, V6 BORDERLINE ECG No previous ECG available for comparison Electronically Signed On 05-12-2025 12:30:48 CDT by Miah Dunne D.O.
[2025-05-12 11:12] LABS: Hematocrit 41.4 % (37.0-47.0); Hemoglobin 12.3 g/dL (12.0-15.0); Immature Granulocyte Percent A 0.4 % (0-0.5); Lymphocytes Absolute Auto 2.21 K/mm3 (0.9-3.2); Mean Corpuscular HGB Conc 29.7 g/dl (32-36); Mean Corpuscular Hemoglobin 25.7 pg (26-34); Mean Corpuscular Volume 86.6 fl (80-100); Nucleated Red Blood Cells Absolute Auto 0.000 K/mm3 (0.0-0.012); Nucleated Red Blood Cells Perc 0.0 % (0.0-0.2); Platelet Count Result 231 k/mm3 (150-375); Red Blood Count 4.78 M/mm3 (4.2-5.4); White Blood Count 7.5 K/mm3 (4.5-10.0)
[2025-05-12 11:25] LABS: INR 1.0; Partial Thromboplastin Time 29.9 Seconds (22.3-36.8); Prothrombin Time 13.1 Seconds (11.1-14.7)
[2025-05-12 11:30] LABS: Alanine Aminotransferase 22 U/L (6-35); Albumin Level 4.5 g/dL (3.5-5.1); Alkaline Phosphatase 79 U/L (38-126); Anion Gap 8 mmol/L (4-12); Aspartate Amino Transferase 38 U/L (14-36); Bilirubin,Total 0.4 mg/dL (0.2-1.3); Blood Urea Nitrogen 18 mg/dL (7-17); Calcium 9.6 mg/dL (8.4-10.2); Carbon Dioxide 25 mmol/L (22-30); Chloride 106 mmol/L (98-107); Estimated Glomerular Filt Rate > 60; Glucose 90 mg/dL (65-110); Potassium 4.4 mmol/L (3.4-5.0); Sodium 139 mmol/L (137-145); Total Protein 7.6 g/dL (6.3-8.2)
[2025-05-12 11:35] LABS: Acanthocytes 1+; Burr Cells 1+; Hypochromasia 1+; Schistocytes None Seen
== END 2025-05-12 09:48 | disposition home or self-care (01) ==
PROVIDERS: PCP Physician Assistant; Visit Provider Urology
DX: R94.31 Abnormal electrocardiogram [ECG] [EKG] (principal); I12.9 Hypertensive chronic kidney disease with stage 1 through stage 4 chronic kidney disease, or unspecified chronic kidney disease; N81.4 Uterovaginal prolapse, unspecified
CPT/HCPCS: 36415; 80053; 85025; 85610; 85730; 86850; 86900; 86901; 93005

== ENCOUNTER 2025-05-23 00:17 | Day surgery (SDC) | payer MEDICARE, SELFPAY ==
--- OUTSIDE RECORDS SUMMARY | 2024-03-13 16:30 | XMS_ITS ---
Author Organization [employer] [place] ([address]) Address [address] [place] [id number] Care Team Providers Care Bag Builder Name Role Phone Scarlett Bales Primary Care Provider Unavailab Coleen Chavez Unavailable [phone] Queta Powell Unavailable Unavailable Z[employer]-M[employer], Provider Unavailable Unavailab le Allergies Allergen (clinical drug ingredient) Drug/Non Drug Allergy documented on EMR Reaction Allergy Type Onset Date Status erythromycin Erythromycin stomach upset Drug Allergy Active morphine Morphine other reaction Drug Allergy Ac tive REASON FOR VISIT [facility] Encounter Medications Medication SIG (Take, Route, Frequency, Duration) Notes Start Date End Date Status Ventolin HFA 108 (90 Base) MCG/ACT 2 puff(s) inhaled Q4-6 hours, PRN and per the asthma action plan; Duration: 30 day(s) Active Advair Diskus 250 MCG-50 MCG 1 INH INHALED 2 TIMES A DAY *Please review and pick correct strength-formulatio n from Levlrspan options. If intended option is not shown, discontinue and re-order from Quick Search* Active Fluticasone-Salmeter ol 250 MCG-50 MCG 1 INH INHALED 2 TIMES A DAY; Duration: 30 DAY(S) *Please review and pick correct strength-formulatio n from Levlrspan options. If intended option is not shown, discontinue and re-order from Quick Search* Active Albuterol Sulfate HFA 108 (90 Base) MCG/ACT 2 puff(s) inhaled every 6 hours Active Omeprazole 40 MG 1 cap(s) orally once a day Active Simvastatin 20 MG 1 tab(s) orally once a day (at bedtime) Active Aspirin 81 MG 1 tab(s) orally once a day Active Vitamin D3 125 MCG 1 TAB(S) ORALLY ONCE A DAY *Please review and pick correct strength-formulatio n from Medispan options. If intended option is not shown, discontinue and re-order from Quick Search* Active Encounters Encounter Location Date Provider Diagnosis [address] [address] 03/13/2024 Provider Aleksandra Moderate persistent asthma, uncomplicated J45.40 Assessments Encounter Date Diagnosis (ICD Code) Assessment Notes Treatment Notes Treatment Clinical Notes Section Notes 03/13/2024 Moderate persistent asthma, uncomplicated (ICD-10 - J45.40) Plan Of Treatment Medication Medication Name Sig Start Date Stop Date Notes Ventolin HFA 108 (90 Base) MCG/ACT 2 puff(s) inhaled Q4-6 hours, PRN and per the asthma action plan; Duration: 30 day(s) Fluticasone-Salmeterol 250 MCG-50 MCG 1 INH INHALED 2 TIMES A DAY; Duration: 30 DAY(S) *Please review and p ick correct strength-formulation from Medispan options. If intended option is not shown, discontinue and re-order from Quick Search* Progress Notes * Michelle ALYDOB:1945 ([age] yo F)Acc No.[id number]:03/13/2024 Patient: Michelle PICKETT Provider: Elio Potts :1945 A ge:78 Y S ex:Female Date:03/13/2024 Address:[address] [place] [address] [address], [id number] Pcp:Scarlett Bales Subjective: * Chief Complaints: * 1 . Multum To [facility] Conversion Encounter. * Medical History: * Medications: T aking Vitamin D3 125 MCG TABLET 1 TAB(S) ORALLY ONCE A DAY , Notes to Pharmacist: *Please review and pick correct strength-formulation from Medispan options. If intended option is not shown, discontinue and re-order from Quick Search*, Taking Aspirin 81 MG Tablet Delayed Release 1 tab(s) orally once a day , Taking Simvastatin 20 MG Tablet 1 tab(s) orally once a day (at bedtime) , Taking Omeprazole 40 MG Capsule Delayed Release 1 cap(s) orally once a day , Taking Albuterol Sulfate HFA 108 (90 Base) MCG/ACT Aerosol Solution 2 puff(s) inhaled every 6 hours , Taking Advair Diskus 250 MCG-50 MCG POWDER 1 INH INHALED 2 TIMES A DAY , Notes to Pharmacist: *Please review and pick correct strength-formulation from [employer] options. If intended option is not shown, discontinue and re-order from Quick Search* * Allergies: M orphine: other reaction - Side Effects, Erythromycin: stomach upset. Objective: * Vitals: Assessment: * Assessment: 1. M oderate persistent asthma, uncomplicated - J45.40 Plan: * Treatment: * Billing Information: * Visit Code: * Procedure Codes: * Electronic signature of Daron CRUM-Migration on 05/23/2025 at 12:19 AM CDT Sign off status: Pending * Provider: Elio garcia Migration Date: 0 03/13/2024 Generated for Seble hidalgo/Jj/Denilsonitting on: 0 05/23/2025 12:19 AM CDT
--- NOTE | 2025-05-12 09:53 | PC.NURSE ---
Report to the Outpatient Waiting Room, entrance under the green pavilion located off [facility], at time _6 AM on date __05/23/25 . Planned Procedure Time: __7:30 AM .? Time changes happen often and if your time is changed the preop area will call you the afternoon before. - You and your visitor will be asked to self-screen and do not enter if you have any COVID symptoms. Please call surgeon if you need to reschedule. - A mask is optional within the hospital at this time. Patients may have clear liquids (water, carbonated beverages, clear teas, apple juice) until 3 hours prior to surgery (4:30 AM) with a maximum of 20 ounces. - No food from midnight until time of surgery and no smoking, or chewing tobacco (or any form of nicotine). No chewing gum, candy or mints. Take only the following medications with a SIP of water on the morning of surgery: __INHALER DO NOT STOP ANY OF YOUR OTHER PRESCRIPTION MEDICATIONS PRIOR TO SURGERY EXCEPT THE FOLLOWING Hold all vitamins and supplements for 3 days per anesthesiologist. Medications to discontinue per physician ASPIRIN PER DR BURK Date to take last dose Please no make-up, nail french, hairspray, perfume, deodorant, or body powder the day of surgery.? No jewelry (including any body piercings) or valuables the day of surgery, leave them at home.? Please take a shower or bath the night before, or the morning of, surgery with an antibacterial soap.? Wear comfortable, loose fitting clothing.? Children are encouraged to wear pajamas. - Jewelry must be removed prior to entering the operating room.? Rings and piercings that are not removed may be cut off. - The hospital will not accept responsibility for valuables.? - Please leave all valuables, including medications, at home the day of surgery. If you are going home after surgery, a licensed winch driver must drive you home.? - NO public transportation without another adult if you receive anesthesia. - We recommend that an adult stay with you for 24 hours following discharge. - We also recommend that you do not drive, make important decision, drink alcoholic beverages, or take any drugs that were not prescribed by your health care provider for at least 24 hours after your discharge time. For Pediatric surgeries, we recommend two adults accompany the child home. Follow any additional instructions given to you from your surgeon. VERBAL AND WRITTEN instructions given to ___PATIENT and asked if any additional questions and then verbalized understanding. Patient advised to call surgeon office or pre surgery nurse liaison [phone] if any additional questions.
[2025-05-12 09:55] VITALS: BMI 23.7
[2025-05-12 10:45] VITALS: BP 150/73; PULSE 62; RESP 18; TEMP 36.7; O2SAT 100
--- NOTE | 2025-05-21 08:57 | PM.IMHP ---
H&P: HPI History of Present Illness Date/Time: 05/21/25 08:57 Chief Complaint: POP Narrative: uterine prolpase. No ainsley 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 GERD (gastroesophageal reflux disease) Hepatitis Hyperlipidemia Jaundice due to hepatitis Rectal polyp Rib fracture Seasonal allergies Sliding hiatal hernia Viral meningitis Surgical History Surgical History History of total right hip arthroplasty (~07/11/20) History of total left hip arthroplasty (~07/21/18) Hx of endoscopy History of surgical removal of skin lesion removing fatty tumor on lower back History of bunionectomy of both great toes History of tubal ligation Hx of cholecystectomy Hx of appendectomy H/O colonoscopy Hx of tonsillectomy Hx of cataract removal with insertion of prosthetic lens Family History Family History Mother Family history of lung cancer Sibling Family history of malignant neoplasm of urinary bladder Mother Family history of lung cancer Sibling Family history of malignant neoplasm of urinary bladder Father Family history of heart disease in male family member before age 55 Social History Social History Smoking status: Never smoker Alcohol intake: never Substance use: never Substance use type: does not use Do You Feel Safe in your Home?: Yes Lack of Transportation: No Lack of Food: Never True Current Housing: I Have Housing Concerned About Future Housing: No Difficulty Paying Gas/Electric Bills: No Difficulty Paying for Meds: No Currently Unemployed: No Education: Bachelor's Degree Difficulty w/ Childcare or Family Care: No Living arrangements: with family Gender identity (if verbalized by the patient): Female Spiritual care concerns: No Meds Home Medications and Allergies Home Medications ?Medication ?Instructions ?Recorded ?Confirmed ?Type omeprazole 40 mg capsule,delayed 40 mg PO QAM 10/09/19 05/12/25 History release simvastatin 20 mg tablet 20 mg PO HS 10/09/19 05/12/25 History albuterol sulfate 90 mcg/actuation 1 inh inhalation QAM PRN 10/27/19 05/12/25 History aerosol inhaler difficulty breathing cholecalciferol (vitamin D3) 25 25 mcg PO DAILY 06/20/20 05/12/25 History mcg (1,000 unit) capsule (Vitamin D3) fluticasone propionate 115 2 puff inhalation DAILY 07/12/20 05/12/25 History mcg-salmeterol 21 mcg/actuation HFA inhaler (Advair HFA) aspirin 81 mg tablet,delayed 81 mg PO HS 12/11/21 05/12/25 History release losartan 50 mg tablet 50 mg PO HS 05/12/25 05/12/25 History Allergies Allergy/AdvReac Type Severity Reaction Status Date / Time erythromycin base Allergy Severe Nausea and Verified 05/12/25 09:57 Vomiting azithromycin Allergy Unknown unknown Verified 05/12/25 09:56 morphine AdvReac Mild RAPID Verified 05/12/25 09:56 HEART RATE Exam Narrative: cystocele +2 [place] -1 Assessment and Plan Assessment and plan (1) Uterine prolapse: Code(s): N81.4 - Uterovaginal prolapse, unspecified Status: Acute Assessment and Plan: Robotic Sacral Colpopexy
[2025-05-23] VITALS (11 sets, daily range): BP systolic 118–168; BP diastolic 58–82; PULSE 52–67; RESP 12–18; TEMP 35.9–37.2; O2SAT 96–100
--- OUTSIDE RECORDS SUMMARY | 2025-05-23 00:19 | XMS_ITS | Patient Health Record ---
Author Organization [facility] [employer] [facility] ([address]) Address [address] [place] [address] Care Team Providers Care Comb Setter Name Role Phone Scarlett Bales Primary Care Provider Unavailab Coleen Chavez Unavailable [phone] Queta Powell Unavailable Unavailable Allergies Allergen (clinical drug ingredient) Drug/Non Drug Allergy documented on EMR Reaction Allergy Type Onset Date Status erythromycin Erythromycin stomach upset Drug Allergy Active morphine Morphine other reaction Drug Allergy Ac tive Reason For Referral No Information Medications Medication SIG (Take, Route, Frequency, Duration) Notes Start Date End Date Status ADVAIR DISKUS 250 mcg-50 mcg 1 INH inhaled 2 times a day Active ALBUTEROL 90 mcg/inh 2 puff(s) inhaled every 6 hours Active Omeprazole 40 MG 1 cap(s) orally once a day Active ASPIRIN 81 mg 1 tab(s) orally once a day Active Simvastatin 20 MG 1 tab(s) orally once a day (at bedtime) Active VITAMIN D3 125 mcg 1 tab(s) orally once a day Active Aspirin 81 MG 1 tab(s) orally once a day Active OMEPRAZOLE 40 mg 1 cap(s) orally once a day Active Vitamin D3 125 MCG 1 TAB(S) ORALLY ONCE A DAY *Please review and pick correct strength-formulatio n from Medispan options. If intended option is not shown, discontinue and re-order from Quick Search* Active SIMVASTATIN 20 mg 1 tab(s) orally once a day (at bedtime) Active VENTOLIN HFA 90 mcg/inh 2 puff(s) inhaled Q4-6 hours, PRN and per the asthma action plan; Duration: 30 day(s) Active FLUTICASONE-SALMETER OL 250 mcg-50 mcg 1 inh inhaled 2 times a day; Duration: 30 day(s) Active Ventolin HFA 108 (90 Base) MCG/ACT 2 puff(s) inhaled Q4-6 hours, PRN and per the asthma action plan; Duration: 30 day(s) Active Advair Diskus 250 MCG-50 MCG 1 INH INHALED 2 TIMES A DAY *Please review and pick correct strength-formulatio n from [employer] options. If intended option is not shown, discontinue and re-order from Quick Search* Active Fluticasone-Salmeter ol 250 MCG-50 MCG 1 INH INHALED 2 TIMES A DAY; Duration: 30 DAY(S) *Please review and pick correct strength-formulatio n from [employer] options. If intended option is not shown, discontinue and re-order from Quick Search* Active Albuterol Sulfate HFA 108 (90 Base) MCG/ACT 2 puff(s) inhaled every 6 hours Active Immunizations Vaccine Route Administration Date Status Comme nts Pedvax Hib SC Subcutaneous 10/22/2022 Administered Pneumovax 23 SC Subcutaneous 10/22/2022 Administered Social History Tobacco Use: Social History Observation Description Date Details (start date - stop date) Never Smoker NA - NA Smoking Smart Form: Question Answer Notes Are you a: never smoker Problems Problem Type SNOMED Code ICD Code Onset Dates Problem Status W/U Status Risk Notes Problem Chronic allergic conjunctivitis (56621683) Other chronic allergic conjunctivitis (H10.45) Active confirmed Problem Allergic rhinitis caused by pollen (disorder) (31921890) Allergic rhinitis due to pollen (J30.1) Active confirmed Problem Allergic rhinitis (71295709) Other allergic rhinitis (J30.89) Active confirmed Problem Chronic rhinitis (90895086) Chronic rhinitis (J31.0) Active confirmed Problem Chronic sinusitis (20724286) Other chronic sinusitis (J32.8) Active confirmed Problem Uncomplicated moderate persistent asthma (207928688) Moderate persistent asthma, uncomplicated (J45.40) Active confirmed Problem Personal history of pneumonia (recurrent) (Z87.01) Active confirmed Problem Allergic rhinitis caused by animal hair and dander (930293324598144) Allergic rhinitis due to animal (cat) (dog) hair and dander (J30.81) Active confirmed Problem 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 Plan Of Treatment No Information Insurance Providers Payer Name Payer Address Payer Phone Subscriber Number Group Number Insured Name Patient Relationship to Insured Coverage Start Date Coverage End Date [employer] (Medicare) Attention Claims [address] [place] [address] [id number] Michelle Aly Self - patient is the insured [facility] [address] [place] [address] [id number] Michelle Aly Self - patient is the insured Medical (General) History Medical History History ICD Code asthma Acid Reflux Hypercholesterolemia Surgical History Surgery Date(Month/Year) Left Hip replacement 2017 Right Hip Replacement 2019
--- OUTSIDE RECORDS SUMMARY | 2025-05-23 00:19 | XMS_ITS | Clinical Summary ---
Author Organization 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 Admit Date: 02/23/2013 Dict.: Michael Brock M.D. Disch. Date: 02/23/2013 NAME OF PROCEDURE: Colonoscopy. HISTORY A 67-year-old female with a prior history of colonic polyps. PHYSICAL EXAMINATION GENERAL: Well developed female. LUNGS: Clear. CARDIOVASCULAR EXAMINATION: Unremarkable. DESCRIPTION OF PROCEDURE Colonoscopy was performed with a Boundless video endoscope. Patient was premedicated by anesthesia. [...] Most Recently Relevant to Health Maintenance [place] [address] [facility] MEDICARE [facility] Address: [address] [place] [address] Care Teams Carboy Filler Relationship Specialty Start Date End Date Scarlett Bales PA PCP - General Physician Blasting Entryman 12/02/23
--- OUTSIDE RECORDS SUMMARY | 2025-05-23 00:19 | XMS_ITS | Clinical Summary ---
Author Organization [facility] [employer] Address [address] [place] [address] Care Team Providers Care Director Of Manufacturing Name Role Phone Kari Garay MD Primary Care Provider [phone] Source Comments [facility],non-owned Affiliates and Associated Physician Practices is amultiple site organization consisting of ambulatory clinics and hospital sitesin [place], [place], [place] and [place]. This disclosure is being madepursuant to the Care Everywhere program and may not contain all information available regarding this patient. 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
[2025-05-23] MEDS: ACETAMINOPHEN 500 MG TABLET 1000 MG PO (07:00)
[2025-05-23] MEDS: LACTATED RINGERS 1,000 ML 30 ML IV CONT ×2 (07:00→10:08)
--- NOTE | 2025-05-23 07:00 | WPDANESEPPF ---
Anes - Initial Pre Proc Eval Procedure: Operation Date: 05/23/25 07:30 Proposed Procedures p Robotic Sacrocolpopexy, Urethral Sling - Jhoan Maravilla MD s Robotic Assisted Laparoscopic Supracervical Hysterectomy with Bilateral Salpingo-Oophorectomy - Mina Ch MD Date/Time: 05/23/25 07:00 Surgeon: Jhoan Maravilla MD Pre Op Diagnosis: uterine prolapse,cystocel,stress incont Patient Data Age: 79 Gender: F Height: 1.6 m Weight: 60.8 kg Last Vital Signs Temp 36.7 C 05/12/25 10:45 Pulse 62 05/12/25 10:45 Resp 18 05/12/25 10:45 BP 150/73 H 05/12/25 10:45 Pulse Ox 100 05/12/25 10:45 O2 Del Method Room Air 05/12/25 10:45 Allergies Allergy/AdvReac Type Severity Reaction Status Date / Time erythromycin base Allergy Severe Nausea and Verified 05/12/25 09:57 Vomiting azithromycin Allergy Unknown unknown Verified 05/12/25 09:56 morphine AdvReac Mild RAPID Verified 05/12/25 09:56 HEART RATE Home Medications ?Medication ?Instructions ?Recorded ?Confirmed ?Type omeprazole 40 mg capsule,delayed 40 mg PO QAM 10/09/19 05/12/25 History release simvastatin 20 mg tablet 20 mg PO HS 10/09/19 05/12/25 History albuterol sulfate 90 mcg/actuation 1 inh inhalation QAM PRN 10/27/19 05/12/25 History aerosol inhaler difficulty breathing cholecalciferol (vitamin D3) 25 25 mcg PO DAILY 06/20/20 05/12/25 History mcg (1,000 unit) capsule (Vitamin D3) fluticasone propionate 115 2 puff inhalation DAILY 07/12/20 05/12/25 History mcg-salmeterol 21 mcg/actuation HFA inhaler (Advair HFA) aspirin 81 mg tablet,delayed 81 mg PO HS 12/11/21 05/12/25 History release losartan 50 mg tablet 50 mg PO HS 05/12/25 05/12/25 History Patient hx anesthesia problems: none Family hx anesthesia problems: none Results Review: All pre-operative results and documents have been reviewed as part of the pre-operative evaluation. [facility] Past Medical History Medical History Falls Jaundice due to hepatitis Hepatitis Rib fracture Fatty tumor on lower back GERD (gastroesophageal reflux disease) Rectal polyp Sliding hiatal hernia Bronchitis Asthma Hyperlipidemia Viral meningitis Seasonal allergies Cataracts, bilateral Surgical History Surgical History History of total right hip arthroplasty (~07/11/20) History of total left hip arthroplasty (~07/21/18) Hx of endoscopy History of surgical removal of skin lesion removing fatty tumor on lower back History of bunionectomy of both great toes History of tubal ligation Hx of cholecystectomy Hx of appendectomy H/O colonoscopy Hx of tonsillectomy Hx of cataract removal with insertion of prosthetic lens Family History Family History Mother Family history of lung cancer Sibling Family history of malignant neoplasm of urinary bladder Mother Family history of lung cancer Sibling Family history of malignant neoplasm of urinary bladder Father Family history of heart disease in male family member before age 55 Social History Social History Smoking status: Never smoker Alcohol intake: never Substance use: never Substance use type: does not use Do You Feel Safe in your Home?: Yes Lack of Transportation: No Lack of Food: Never True Current Housing: I Have Housing Concerned About Future Housing: No Difficulty Paying Gas/Electric Bills: No Difficulty Paying for Meds: No Currently Unemployed: No Education: Bachelor's Degree Difficulty w/ Childcare or Family Care: No Living arrangements: with family Gender identity (if verbalized by the patient): Female Spiritual care concerns: No Anes - Eval Final PreProcedure Day of Procedure 05/23/25 07:00 Patient weight: normal Heart: regular rate and rhythm Lungs: clear to auscultation Airway: Mallampati scale class II Neurological: alert and oriented Last oral intake: >/= 8 hours ASA classification: III Emergent: no Anesthetic plan: proceed Anesthesia type and monitoring: general ETT and standard monitoring Results Review: All pre-operative results and documents have been reviewed as part of the pre-operative evaluation. Informed Consent: The patient's anesthetic plan and its attendant risks and benefits were discussed with the patient/family/POA. Questions were solicited and answers provided to the satisfaction of the patient/family/POA.
--- NOTE | 2025-05-23 07:18 | WPDHPUPDATE1 ---
History and Physical Update Update Date/Time: 05/23/25 07:18 History and Physical has been reviewed, including an updated exam of the patient. There are NO changes in the patient's condition. Risks, benefits, and alternatives have been discussed and questions answered. Patient agrees to proceed with procedure.
--- NOTE | 2025-05-23 07:52 | WPDHPUPDATE1 ---
History and Physical Update Update Date/Time: 05/23/25 07:52 History and Physical has been reviewed, including an updated exam of the patient. There are NO changes in the patient's condition. Risks, benefits, and alternatives have been discussed and questions answered. Patient agrees to proceed with procedure.
[2025-05-23] MEDS: ceFAZolin 2 GM in SODIUM CHLORIDE 0.9% IV 50 ML 100 ML IVPB (07:58)
[2025-05-23] MEDS: metroNIDAZOLE 500 MG/ISO 100ML 500 MG/100 ML BAG 100 MG IVPB ×3 (07:58→22:33)
--- NOTE | 2025-05-23 08:45 | W.PM.PROC2 ---
Procedure Note - Detailed Date of Procedure 05/23/25 Pre-op Diagnosis uterine prolapse,cystocel,stress incont Post-op Diagnosis Same Procedure Performed Robotic assisted supracervical hysterectomy with bilateral salpingo-oophorectomy Surgeon Mina Ch MD Anesthesia General Indications pelvic organ prolapse Findings normal-appearing uterus, ovaries, and left tube, right tube was partially resected. Some scarring over the posterior cul-de-sac peritoneum. Description of Procedure This patient was taken to the operating room. She was prepped and draped in the dorsal lithotomy position after induction of general anesthesia. the robot trocars and docking was performed by Dr. Maravilla. a tenaculum was applied to the vaginal mucosa at the cervicovaginal juncture posteriorly. This was done with a speculum and tenaculum. The speculum was placed. The cervix was grasped with a tenaculum. Trocars were placed by Dr. Maravilla. The location of the ureters was identified at the pelvic brim. The ovaries were grasped and raised. The infundibulopelvic ligaments were cauterized and transected with LigaSure cautery. This was all done in a bilateral fashion. The para ovarian tissue was cauterized and transected with LigaSure cautery bilaterally. Moving around the ovary into the broad ligament the tissue was cauterized transected with The vessel sealer cautery. The round ligaments were cauterized transected with the vessel sealer cautery this was all done in a bilateral fashion. In a stepwise fashion along the lateral aspects of the uterus the round ligament and broad ligaments were cauterized transected down to the level of the uterine arteries. The cervix was transected using unipolar cautery. the uterus was bifurcated down to the level the cervix. The uterus and bilateral tubes and ovaries were laid off to the side for Dr. Maravilla to remove later. The remainder of the procedure was performed by Dr. Maravilla, again he finished the surgery. Urine Output 800 Drains Yes Packing No Pathology Yes Complications No immediate complications Condition Stable Disposition Floor
[2025-05-23] MEDS: BUPIVACAINE/EPINEPHRINE 0.5% 30 ML VIAL 20 ML INFILTRATE (08:47)
--- NOTE | 2025-05-23 09:36 | S_PTH ---
PATIENT: Michelle Aly LOC: [facility] U#:[id number] AGE/SX: 79/F ROOM: RE05/23/[address]: Jhoan Maravilla MD : 1945 BED: DIS: 05/24/2025 SPEC #: [id number] RECD: 05/23/25 10:29 STATUS: CAITLIN REQ #: [id number] ARASH: 05/23/25 09:[address]: Jhoan Maravilla DEPT: [facility] Surgical RECD BY: Janet Ann ENTERED: 05/23/25 10:29 SP TYPE: Surgical OTHR DR: Scarlett Bales, PATinaC Tissues: A - Uterus Procedures: Hematoxylin and Eosin Stain Gross and Microscopic Level 5
--- NOTE | 2025-05-23 10:11 | P.OP_ITS ---
Procedure Note - Detailed Date of Procedure 05/23/25 Pre-op Diagnosis uterine prolapse Post-op Diagnosis Same Procedure Performed Robotic assisted laparoscopic sacral colpopexy Cystoscopy Surgeon Jhoan Maravilla MD Anesthesia General Indications A woman with uterine prolapse without stress incontinence. She desires surgical correction. She is here for the above. She understands risks of bleeding, infection, diskitis, damage to surrounding organs, bowel injury, bowel obstruction, mesh related complications including exposure and extrusion, postoperative voiding dysfunction including incontinence and retention, need for ancillary procedures, dyspareunia, recurrence of prolapse, and other perioperative intraoperative postoperative complications. She agrees to proceed. Findings See below Description of Procedure She was correctly identified. Informed consent obtained. She from the operating room. She was given general anesthesia. She was given appropriate perioperative antibiotics. She was placed a low lithotomy position. Pressure points were padded. A time-out performed. I marked out the skin 3 fingerbreadths cephalad to the umbilicus. I anesthetized the skin. I incised the skin. I dissected down to the fascia. I grasped the fascia with Lance clamps. I entered the fascia sharply in a Madrigal type technique. I placed sutures for later fascial closure. I placed a midline trocar. I examined the abdomen. Wispy adhesions were taken down sharply using laparoscopic scissors. I took great care not to injure underlying organs. There is no sign of any injury. Under direct vision I placed 2 additional trocars in the right upper quadrant and 2 additional trocars the left upper quadrant. She was placed in steep Trendelenburg. The robot was docked. Her contract assistant completed their portion of the procedure. Please see that operative report for details. I then sat at the console. The Sizer in the vagina created plane on the anterior and posterior vaginal wall. I took great care not to injure the vagina, bladder, or rectum. I introduced the mesh into the abdomen. I sewed the anterior leaflet of mesh on the anterior vaginal wall. I sewed the posterior leaflet of mesh on the posterior vaginal wall. This was done with several sutures of 2 0 [place]-Eddie. I reflected the colon laterally. I opened the posterior peritoneum over the sacral promontory. I carried this into the cul-de-sac. I freed up the edges for later retroperitonealization. I located the anterior longitudinal ligament the sacrum. I cleaned off all fatty tissues. I then tensioned my mesh appropriately. I did a vaginal exam the bedside. I assured prolapse reduction without undue tension. I then sewed the proximal leaflet of mesh onto the anterior longitudinal ligament of the sacrum with 3 sutures of 2 0 [place]-Eddie. I then used a 2 0 Monocryl to completely and meticulously retroperitonealized all mesh. I allowed the colon to go back to its normal anatomic location. There is no sign of any impingement. The specimen was then removed. All ports removed. Fascia was tied down. Two additional sutures were placed fully close the fascia. Skin was closed with Monocryl and surgical glue. I then performed cystoscopy. There was no tumors or surgical artifact. Both ureters were seen to excrete clear yellow urine. There is no surgical artifact in the bladder or urethra. I cut the excess sling material. Close incision with glue. She was awakened and transferred to PACU in stable condition. Implants Sacral colpopexy mesh Estimated Blood Loss 10 Urine Output 800 Packing No Pathology None sent Complications No immediate complications Condition Stable Disposition PACU
[2025-05-23] MEDS: fentaNYL CITRATE INJ (*CRX) 100 MCG/2 ML VIAL 25 MCG IV PUSH ×5 (10:30→11:17)
[2025-05-23] MEDS: ONDANSETRON INJ 4 MG/2 ML VIAL IV PUSH ×2 (10:34→22:41)
[2025-05-23] MEDS: ACETAMINOPHEN 325 MG TABLET 650 MG PO ×2 (12:00→17:45)
--- NOTE | 2025-05-23 12:00 | PCRCNOTE ---
ADVAIR INHALER NOT GIVEN; PT. STATES SHE ALREADY TOOK IT THIS MORNING AT HOME. PT. DID NOT NEED THE ALBUTEROL INHALER AT THIS TIME. R.N. NOTIFIED.
[2025-05-23] MEDS: KETOROLAC 30 MG/ML VIAL (*BKC) IV PUSH (12:01)
[2025-05-23] MEDS: KCL 20 MEQ/D5/0.45% SOD CHL 1,000 ML 100 ML IV CONT ×2 (12:03→21:07)
[2025-05-23] MEDS: ceFAZolin 1 GM in SODIUM CHLORIDE 0.9% IV 50 ML 100 ML IVPB ×2 (15:57→23:29)
[2025-05-23] MEDS: HYDROcodone/acetaminophen (*CRX) 5-325 MG TABLET 1 TAB PO ×2 (17:46→22:41)
[2025-05-23] MEDS: LOSARTAN POTASSIUM 50 MG TABLET PO (21:07)
[2025-05-23] MEDS: SIMVASTATIN 20 MG TABLET PO (21:07)
[2025-05-24 05:10] VITALS: BP 135/63; PULSE 61; RESP 14; TEMP 36.6; O2SAT 95
[2025-05-24] MEDS: ACETAMINOPHEN 325 MG TABLET 650 MG PO (05:23)
[2025-05-24] MEDS: HYDROcodone/acetaminophen (*CRX) 5-325 MG TABLET 1 TAB PO (05:24)
[2025-05-24] MEDS: metroNIDAZOLE 500 MG/ISO 100ML 500 MG/100 ML BAG 100 MG IVPB (06:17)
[2025-05-24 07:35] VITALS: BP 136/68; PULSE 58; RESP 16; TEMP 36.6; O2SAT 96
[2025-05-24] MEDS: ONDANSETRON INJ 4 MG/2 ML VIAL IV PUSH (07:40)
[2025-05-24 08:45] VITALS: PULSE 57; RESP 20
[2025-05-24] MEDS: FLUTICASONE/SALMETEROL 115-21 MCG INHALER 1 PUFF 2 PUFF INHALATION (08:45)
[2025-05-24] MEDS: ENOXAPARIN 30 MG/0.3 ML SYRINGE SUB-Q (10:01)
--- NOTE | 2025-05-24 11:02 | PC.NURSE ---
Pt vomitted and states she feels much better. Assisted her up to the bathroom and she voided 250cc's. She would like to go home now, told her that we will monitor her for another 30 min then if she does not have any nausea I will start working on her discharge papers.
== END 2025-05-24 11:57 | disposition home or self-care (01) ==
LOC: ANHSURGERY 07:31 → ANHOB2 11:36
PROVIDERS: Obstetrics & Gynecology; PCP Physician Assistant; Visit Provider Urology
PROC: (CPT 57425; principal; 2025-05-23 07:30)
PROC: 0UT94ZZ Resection of Uterus, Percutaneous Endoscopic Approach (ICD-10-PCS; CPT 57425; 2025-05-23 07:30)
DX: N81.4 Uterovaginal prolapse, unspecified (principal); N83.8 Other noninflammatory disorders of ovary, fallopian tube and broad ligament; D27.1 Benign neoplasm of left ovary; E78.5 Hyperlipidemia, unspecified; J45.909 Unspecified asthma, uncomplicated; K21.9 Gastro-esophageal reflux disease without esophagitis; Z79.51 Long term (current) use of inhaled steroids; Z79.82 Long term (current) use of aspirin; Z98.890 Other specified postprocedural states; Z98.51 Tubal ligation status; Z90.49 Acquired absence of other specified parts of digestive tract; Z86.0100 Personal history of colon polyps, unspecified; Z80.1 Family history of malignant neoplasm of trachea, bronchus and lung; Z80.52 Family history of malignant neoplasm of bladder; Z82.49 Family history of ischemic heart disease and other diseases of the circulatory system
CPT/HCPCS: 58542; 57425; S2900 ×2; 88307; 94640; 99199; J0690; A9270; C1781; J1650; J1836; J1885; J2003; J2405; J2704; J3010; J3480; J7030; J7120